=== PATIENT | female | born 1945 | race Caucasian/White ===

== ENCOUNTER 2018-01-06 15:29 | Inpatient (IN) | payer MEDICARE ==
[~2018-01-06] VITALS: Ht 168.9 cm; Wt 107.6 kg
[~2018-01-06 15:29] MED LIST: AMLODIPINE BESYL5 MG PO; ANASTROZOLE1 MG PO; ASPIRIN81 MG PO; ATORVASTATIN CA40 MG PO; COUMADIN2.5 MG PO; DIGOXIN125 MCG PO; FUROSEMIDE20 MG PO; GLIPIZIDE5 MG PO; LEVOTHYROXINE75 MCG PO; LISINOPRIL20 MG PO; METFORMIN HCL500 M2 PO; POTASSIUM CHLO10 MEQ PO; TOPROL XL200 MG PO; VICODIN 5-5001 EACH PO; VITAMIN D350000 UNIT PO
[2018-01-06 17:32] LABS: BASOPHILS # (AUTO) 0.1 (0.0-0.1); BASOPHILS % 0.8 % (0.0-1.0); EOSINOPHILS # (AUTO) 0.2 (0.0-0.4); EOSINOPHILS % 1.6 % (0.0-6.0); HEMATOCRIT 37.2 % (34.2-44.1); HEMOGLOBIN 11.3 g/dL (12.0-16.0); LYMPHOCYTES # (AUTO) 0.8 (1.0-3.2); LYMPHOCYTES % 8.7 % (18.0-39.1); MEAN CORPUSCULAR HEMOGLOBIN 28.2 pg (28-32); MEAN CORPUSCULAR HGB CONC 30.4 g/dL (31-35); MEAN CORPUSCULAR VOLUME 92.8 fL (81-99); MONOCYTES # (AUTO) 1.2 (0.2-0.8); MONOCYTES % 12.7 % (4.4-11.3); NEUTROPHILS % 75.8 % (38.7-80.0); PLATELET COUNT 296 x10e3/uL (140-360); RED BLOOD COUNT 4.01 x10e6/uL (3.6-5.1); RED CELL DISTRIBUTION WIDTH 16.6 % (11.7-14.4)
[2018-01-06 17:44] LABS: PARTIAL THROMBOPLASTIN TIME 78.1 seconds (23.8-35.5)
[2018-01-06 17:48] LABS: INR 8.27; PROTHROMBIN TIME 64.6 seconds (11.9-14.5)
[2018-01-06 17:52] LABS: ALANINE AMINOTRANSFERASE 18 IU/L (0-55); ALBUMIN 2.6 g/dL (3.5-5.0); ALBUMIN/GLOBULIN RATIO 0.5 (0.8-2.0); ALKALINE PHOSPHATASE 122 IU/L (40-150); ANION GAP 14.2 mmol/L (8-16); BLOOD UREA NITROGEN 12 mg/dL (7-26); BUN/CREATININE RATIO 15 (6-25); CALCIUM 9.7 mg/dL (8.4-10.2); CARBON DIOXIDE 32 mmol/L (22-29); CHLORIDE 99 mmol/L (98-107); CREATINE KINASE 12 IU/L (29-168); CREATININE, SERUM 0.82 mg/dL (0.57-1.11); EST GLOMERULAR FILTRATION RATE > 60 ML/MIN (60-); GLUCOSE 108 mg/dL (74-118); POTASSIUM 5.2 mmol/L (3.5-5.1); SODIUM 140 mmol/L (136-145)
[2018-01-06] MEDS ORDERED: ONDANSETRON HCL INJ 2 MG/ML VIAL IV PRN (18:45)
[2018-01-06] MEDS ORDERED: MORPHINE SULFATE 2 MG/ML SYR IV PRN (18:45)
[2018-01-06 20:00] VITALS: BP 164/85
[2018-01-06 20:50] VITALS: BP 132/84
[2018-01-06] MEDS ORDERED: METOPROLOL SUCC25 MG PO (23:06)
[2018-01-06] MEDS ORDERED: DILTIAZEM 24HR120 M1 (23:06)
[2018-01-06] MEDS ORDERED: AMIODARONE PO (23:06)
[2018-01-06] MEDS ORDERED: PEPCID20 MG PO (23:06)
[2018-01-06] MEDS: IPRATROPIUM BROMIDE 0.02% 2.5 ML NEB NEB SCH (23:10)
[2018-01-07] VITALS: BP 145/79
[2018-01-07] MEDS: IPRATROPIUM BROMIDE 0.02% 2.5 ML NEB NEB SCH ×6 (03:25→23:10)
[2018-01-07 04:24] VITALS: BP 120/71
[2018-01-07] MEDS: HYDROCODONE/APAP 5MG-325MG TAB PO PRN ×2 (04:29→21:45)
[2018-01-07 05:13] LABS: BASOPHILS # (AUTO) 0.1 (0.0-0.1); BASOPHILS % 0.7 % (0.0-1.0); EOSINOPHILS # (AUTO) 0.1 (0.0-0.4); EOSINOPHILS % 1.4 % (0.0-6.0); HEMATOCRIT 35.6 % (34.2-44.1); HEMOGLOBIN 10.4 g/dL (12.0-16.0); LYMPHOCYTES # (AUTO) 0.9 (1.0-3.2); LYMPHOCYTES % 10.5 % (18.0-39.1); MEAN CORPUSCULAR HEMOGLOBIN 27.7 pg (28-32); MEAN CORPUSCULAR HGB CONC 29.2 g/dL (31-35); MEAN CORPUSCULAR VOLUME 94.7 fL (81-99); MONOCYTES # (AUTO) 1.1 (0.2-0.8); MONOCYTES % 13.1 % (4.4-11.3); NEUTROPHILS # (AUTO) 6.2 (2.1-6.9); NEUTROPHILS % 73.8 % (38.7-80.0); PLATELET COUNT 307 x10e3/uL (140-360); RED BLOOD COUNT 3.76 x10e6/uL (3.6-5.1); RED CELL DISTRIBUTION WIDTH 16.8 % (11.7-14.4)
[2018-01-07 05:33] LABS: INR 7.05
[2018-01-07 05:35] LABS: ANION GAP 13.9 mmol/L (8-16); BLOOD UREA NITROGEN 12 mg/dL (7-26); BUN/CREATININE RATIO 15 (6-25); CALCIUM 9.5 mg/dL (8.4-10.2); CARBON DIOXIDE 32 mmol/L (22-29); CHLORIDE 100 mmol/L (98-107); CREATININE, SERUM 0.79 mg/dL (0.57-1.11); EST GLOMERULAR FILTRATION RATE > 60 ML/MIN (60-); GLUCOSE 163 mg/dL (74-118); POTASSIUM 4.9 mmol/L (3.5-5.1); SODIUM 141 mmol/L (136-145)
[2018-01-07 05:58] LABS: MAGNESIUM 2.2 MG/DL (1.3-2.1)
[2018-01-07] MEDS: LEVOTHYROXINE SODIUM 75 MCG TAB PO SCH (06:01)
[2018-01-07 06:13] LABS: THYROID STIMULATING HORMONE 0.805 uIU/mL (0.350-4.940)
[2018-01-07 06:19] LABS: DIGOXIN < 0.30 ng/mL (0.8-2.0)
[2018-01-07 06:53] LABS: CREATINE KINASE MB 1.3 ng/mL (0-5.0)
[2018-01-07 07:39] LABS: BAND NEUTROPHILS % (MANUAL) 1 %; LYMPHOCYTES % (MANUAL) 18 % (19-48); MONOCYTES % (MANUAL) 11 % (3.4-9.0); NEUTROPHILS % (MANUAL) 70 % (40-74); NUCLEATED RED BLOOD CELLS 1
[2018-01-07 07:40] LABS: PLATELET ESTIMATE ADEQUATE; PLATELET MORPHOLOGY COMMENT NORMAL; RBC MORPHOLOGY COMMENT NORMAL
[2018-01-07 08:00] VITALS: BP 92/60
[2018-01-07] MEDS ORDERED: METOPROLOL SUCCINATE 25 MG TAB XL PO SCH (09:00)
[2018-01-07] MEDS ORDERED: FUROSEMIDE 40 MG TAB PO SCH (09:00)
[2018-01-07] MEDS ORDERED: AMIODARONE HCL 200 MG TAB PO SCH (09:00)
[2018-01-07] MEDS ORDERED: LISINOPRIL 20 MG TAB PO SCH (09:00)
[2018-01-07] MEDS ORDERED: DILTIAZEM HCL 120 MG CAP CD PO SCH (09:00)
[2018-01-07] MEDS: METFORMIN HCL 500 MG TAB CR PO SCH ×2 (09:30→17:56)
[2018-01-07] MEDS: POTASSIUM CHLORIDE 10 MEQ TABCR PO SCH (09:30)
[2018-01-07] MEDS: FAMOTIDINE 20 MG TAB PO SCH ×2 (09:30→17:56)
[2018-01-07] MEDS: GLIPIZIDE 5 MG TAB PO SCH (09:30)
--- NOTE | 2018-01-07 09:46 | Diagnostic Imaging Report ---
EXAMINATION: CHEST 2 VIEWS INDICATION: \S\PLEURAL EFFUSION \[id number] \S\[id number] \S\Y COMPARISON: CT chest 04/04/2012 and chest radiograph 01/06/2018 FINDINGS: PA and lateral views TUBES and LINES: None. LUNGS: Decreased right lung volume. Bilateral interstitial edema. Right lower lobe consolidation may be due to atelectasis. PLEURA: Moderate right and small left pleural effusion, unchanged. No pneumothorax. HEART AND MEDIASTINUM: Stable mild enlargement of the cardiac silhouette. BONES AND SOFT TISSUES: No acute osseous lesion. Soft tissues are unremarkable. UPPER ABDOMEN: No free air under the diaphragm. IMPRESSION: Unchanged bilateral interstitial edema and moderate right and small left pleural effusions. Bibasilar atelectasis, right greater than left. Signed by: Dr. Zuleyka Bruce M.D. on 01/07/2018 9:43 AM
--- NOTE | 2018-01-07 09:55 | Diagnostic Imaging Report ---
EXAMINATION: CHEST SINGLE (PORTABLE) INDICATION: \S\SOB \[id number] \S\[id number] COMPARISON: Chest radiograph 01/13/2017 FINDINGS: AP view TUBES and LINES: None. LUNGS: Decreased right lung volume. Consolidation in the right lower lobe. Left lung is clear. Mild bilateral interstitial edema. PLEURA: Moderate right and small left pleural effusions. No pneumothorax. HEART AND MEDIASTINUM: Mild enlargement of the cardiac silhouette. BONES AND SOFT TISSUES: No acute osseous lesion. Soft tissues are unremarkable. UPPER ABDOMEN: No free air under the diaphragm. IMPRESSION: Interval development of bilateral pleural effusion with right lower lobe airspace opacity which may be due to atelectasis or developing infection. Bilateral interstitial edema. Signed by: Dr. Zuleyka Bruce M.D. on 01/07/2018 9:51 AM
[2018-01-07 12:00] VITALS: BP 92/60
[2018-01-07 13:09] LABS: CREATINE KINASE MB 1.3 ng/mL (0-5.0)
[2018-01-07] MEDS ORDERED: PHYTONADIONE 10 MG/ML AMP SC ONE (13:15)
[2018-01-07] MEDS ORDERED: DIGOXIN INJ 0.25 MG/ML 2 ML AMP IV ONE (14:00)
[2018-01-07] MEDS ORDERED: AZITHROMYCIN 500MG/NS 250 ML 250 ML IV ONE (14:30)
[2018-01-07] MEDS ORDERED: CEFTRIAXONE SOD 1 GM VIAL IV ONE (14:30)
[2018-01-07] MEDS ORDERED: VANCOMYCIN 1GM/NS 250 ML 250 ML IV ONE (15:30)
[2018-01-07 16:00] VITALS: BP 150/83
[2018-01-07] MEDS: INSULIN LISPRO 100 UNIT/1 ML 3ML VIAL SQ SCH ×2 (16:30→21:00)
[2018-01-07] MEDS ORDERED: SODIUM CHLORIDE 0.9% 250ML 250 ML ONE (17:34)
--- NOTE | 2018-01-07 17:43 | Consultation ---
DATE OF CONSULTATION: PULMONARY CONSULTATION A patient of Dr. Noe. A charming but unfortunate 72-year-old woman with history of recent pneumonia, fever and chills. History of old stroke, history of chronic atrial fibrillation, hypertension, hypothyroidism, diabetes. She is chronically anticoagulated. 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 She has had other surgeries but cannot recall them. ALLERGIES: ALLERGIC TO CLEOCIN AND ADHESIVE TAPE. She has a history of a renal mass. Her medications include amiodarone, metformin, glipizide, metoprolol, Lipitor, aspirin, Levoxyl, lisinopril, Vicodin and Cardizem. She has had a hysterectomy. Worked as a manager of business operations. Nonsmoker, no alcohol. Born in [place], [place]. FAMILY HISTORY: Noncontributory. PHYSICAL EXAMINATION GENERAL: A well-developed white female in no acute distress. Appears stated age. History of multiple old lacunar strokes. VITAL SIGNS: Temperature 100.7, pulse 103, blood pressure 92/60. She relates that she has had thoracentesis earlier this month at [facility]. HEAD: Normocephalic, atraumatic. NECK: Trachea midline. CHEST: Right mastectomy scar. LUNGS: Diminished breath sounds right base. HEART: Irregular rhythm. ABDOMEN: Nontender. EXTREMITIES: Stasis dermatitis lower extremities. IMPRESSION: One of 1. Heart failure. 2. Breast cancer. 3. Fever. 4. Atelectasis related to effusion. PLAN: Thoracentesis once the INR has been corrected. It is supratherapeutic at this time. Check sputum studies, CT chest. Consider renal evaluation. Recurrent pleural effusion suspicious for cancer. Thank you for this kind referral. Job#: [id number] EV
[2018-01-07] MEDS: METOPROLOL TARTRATE 25 MG TAB PO SCH (18:11)
[2018-01-07] MEDS ORDERED: METOLAZONE 5 MG TAB PO ONE (18:30)
[2018-01-07] MEDS ORDERED: FUROSEMIDE INJ 10 MG/ML 4 ML VIAL IV ONE (18:30)
[2018-01-07 20:24] VITALS: BP 154/83
[2018-01-07] MEDS: ATORVASTATIN 10 MG TAB PO SCH (21:45)
--- NOTE | 2018-01-07 22:54 | Consultation ---
DATE OF CONSULTATION: January 07, 2018 CARDIOLOGY CONSULTATION REASON FOR CONSULTATION: Atrial fibrillation and dyspnea. HISTORY OF PRESENT ILLNESS: Ms. Wooten is a 72-year-old lady with past medical history of hypertension, type-2 diabetes with complications of hypercholesterolemia, chronic atrial fibrillation for the past 10 years with prior history of 2 embolic strokes in the past with residual slight right-sided weakness and right facial droop, and has some slight residual expressive aphasia, history of right breast mastectomy 5 years ago for breast cancer, status post XRT and chemotherapy and is now on chronic anastrozole therapy as a hormonal suppressant, history of hypothyroidism, history of chronic bilateral lower extremity lymphedema and prior history of DVT of the lower extremities on chronic anticoagulant therapy amongst other things. Patient's most recent issue has been progressively worsening exertional dyspnea, cough, fatigue, unexplained weight gain and went to [facility], where she was diagnosed with a right-sided pleural effusion and underwent therapeutic thoracentesis removing 1.1 L, which improved her breathing. Since that time, she has had progressive decline in functional capacity with exertional dyspnea, fatigue, and development of 2- to 3-pillow orthopnea and worsening lower extremity edema. She denies knowing that she has ever been told that she has congestive heart failure in the past and as far as coronary evaluation, denies any ischemic evaluation or recent history. She has no known history of any coronary artery disease. She presents to this institution also with low-grade fevers, chills, and a nonproductive cough. Upon arrival here in the emergency room, she had a BNP noted to be elevated at 376 and a troponin that was strongly negative times 3 and has been ruled out for acute myocardial infarction. Her TSH is noted to be normal at 0.805. Cardiology is consulted for further aid and management. Of note, she was noted to be supratherapeutic on her INR at 8.27 on admission and did receive some vitamin K as a reversal. PAST MEDICAL HISTORY 1. Hypertension, essential. 2. Type-2 diabetes with complications. 3. Hypercholesterolemia. 4. Chronic atrial fibrillation diagnosed in 2007 with prior history of stroke and presumably embolic times 2. 5. Breast cancer, status post right mastectomy, status post chemo and XRT on anastrozole hormonal therapy. 6. Hypothyroidism. 7. Right pleural effusion, status post thoracentesis 1 month ago at [facility]. 8. Chronic lymphedema. 9. History of lower extremity DVT, diagnosed 2 months ago. 10. History of stroke with slight right-sided weakness and facial droop, as well as some expressive aphasia. 11. Left renal mass, under observation. PAST SURGICAL HISTORY 1. History of right mastectomy 5 years ago. 2. History of abdominal hernia surgery, not resolved. 3. History of lumbar spine surgery times 2. FAMILY HISTORY: Mother in her 60s of unknown cause. Father in his 50s and unknown history. Denies any family history of coronary artery disease or heart problems. SOCIAL HISTORY: She is a lifelong nonsmoker. Denies any alcohol or illicit drug use. ALLERGIES: CLINDAMYCIN. HOME MEDICATIONS 1. Aspirin 81 mg daily. 2. Atorvastatin 10 mg daily. 3. Cardizem 120 mg daily. 4. Pepcid 20 mg b.i.d. 5. Lasix 40 mg daily. 6. Glipizide 5 mg daily. 7. Vicodin 5 per 500 mg q.6 h p.r.n. 8. Synthroid 75 mcg daily. 9. Lisinopril 20 mg b.i.d. 10. Metformin 500 mg b.i.d. 11. Toprol XL 75 mg b.i.d. 12. Potassium chloride 10 mEq daily. REVIEW OF SYSTEMS GENERAL: Positive for subjective fevers, chills. Denies any weight loss. Positive for weight gain. HEENT: No headaches, visual complaints. Positive for sore throat and some slight stuffiness. RESPIRATORY: Positive for nonproductive cough, exertional dyspnea at rest, now at rest, and development of 3-pillow orthopnea. CARDIOVASCULAR: Denies any chest pain, discomfort. Increased lower extremity edema and positive orthopnea and early satiety that is progressive over the past 3 weeks. GI: Positive for GERD. No bright red blood per rectum, melena, hematemesis. HEMATOLOGY: Positive for easy bruising. No bleeding. : Denies any dysuria, pyuria. MUSCULOSKELETAL: Positive for lower back pain, leg pain, leg swelling and skin texture changes and blister over left anterior atkinson. ENDOCRINE: Positive for diabetes and hypothyroidism. NEUROLOGIC: Positive for history of stroke in the past with residual expressive aphasia, some slight right-sided body weakness. REMAINDER OF REVIEW OF SYSTEMS: Negative otherwise mentioned. PHYSICAL EXAM VITAL SIGNS: Height of 66.5 inches, weight of 244 pounds, BMI is 38.8, temperature of 98.0, T-max is 100.7, pulse of 123, respiratory rate 18, blood pressure is 92/60, O2 sat 94% on 3 L nasal cannula. GENERAL: This is a chronically ill appearing lady, who is currently in mild respiratory difficulty. HEENT: Normocephalic, atraumatic. Pupils are equally round and reactive to light. Extraocular movements are intact. Oropharynx is clear. NECK: There is JVD up to the angle of mandible. CARDIOVASCULAR: Irregularly irregular rhythm, tachycardic. Normal S1 and S2. Soft 1/6 systolic murmur left lower sternal border. LUNGS: Absent breath sounds 1/3 of the lung carlisle on the right, 1/4 of the lung carlisle on the left, some crackles, and poor air entry. ABDOMEN: Soft, protuberant with a ventral abdominal wall hernia with abdominal pitting edema. BACK: No costovertebral angle tenderness. EXTREMITIES: With 4+ edema. There is chronic venous stasis changes below the knees bilaterally. There is an anterior left atkinson ulcer that is nonstageable that was present on admission. NEUROLOGIC: She has got some slight right upper extremity body weakness 4-/5. There is a right facial droop and has some slight expressive aphasia. REMAINDER OF PHYSICAL EXAM: Negative otherwise mentioned. LABS: White count of 8.4, hemoglobin 10.4, hematocrit 35.6, platelets of 307,000. Sodium 141, potassium 4.9, chloride 100, bicarb 32, BUN 12, creatinine 0.79, glucose of 163, AST is 13, ALT 18, alk phos 122, total protein 7.4, albumin of 2.6. INR most recently is 7.05, dig level is less than 0.3. UA is not done. Chest x-ray reveals bilateral interstitial edema and right lung base opacity concerning for right effusion moderate on the right, small on the left. EKG: Atrial fibrillation, delayed R/S transition, left anterior fascicular block, and nonspecific ST/T-wave. Troponin is negative times 3. DIAGNOSES 1. [id number] decompensated diastolic heart failure. 2. Hypoxemic respiratory distress. 3. Questionable superimposed pneumonia. 4. Recurrent bilateral pleural effusions. 5. Atrial fibrillation with rapid ventricular response, chronic. 6. Questionable pneumonia, sepsis with low-grade fevers. 7. History of breast cancer, on chronic hormonal therapy. 8. History of deep venous thrombosis. 9. Supratherapeutic international normalized ratio with international normalized ratio of 7, status post receiving of vitamin K. 10. Prior history of stroke. 11. Hypertension, essential. 12. Type-2 diabetes with complications. 13. Venous stasis changes and anterior left atkinson venous ulcer. PLAN/RECOMMENDATIONS 1. From cardiovascular standpoint, due to a lack of blood pressure, we will stick with digoxin, as well as metoprolol for rate control therapy. Will not give amiodarone as rhythm control strategy will not be successful in a lady, who has been in chronic atrial fibrillation for 10 years. 2. Will hold anticoagulant therapy for now due to severely supratherapeutic INR. 3. On empiric antibiotic therapy for pneumonia and low-grade fevers. 4. Will give metolazone, Lasix combination for aggressive diuresis. 5. Will check echocardiogram to evaluate her left ventricular function. 6. Her hyperalbuminemia and protein-calorie malnutrition is also going to be a challenging issue, which will promote volume retention. 7. Telemetry monitoring. 8. Will continue monitor this patient with you. Thank you for this referral. Job#: [id number] SHANTELLE
[2018-01-08] VITALS (17 sets, daily range): BP systolic 88–160; BP diastolic 45–101
[2018-01-08] MEDS: IPRATROPIUM BROMIDE 0.02% 2.5 ML NEB NEB SCH ×6 (03:20→23:30)
[2018-01-08 05:11] LABS: BASOPHILS # (AUTO) 0.1 (0.0-0.1); BASOPHILS % 0.6 % (0.0-1.0); EOSINOPHILS # (AUTO) 0.2 (0.0-0.4); EOSINOPHILS % 1.8 % (0.0-6.0); HEMATOCRIT 35.8 % (34.2-44.1); HEMOGLOBIN 10.9 g/dL (12.0-16.0); LYMPHOCYTES # (AUTO) 1.2 (1.0-3.2); LYMPHOCYTES % 10.5 % (18.0-39.1); MEAN CORPUSCULAR HEMOGLOBIN 28.2 pg (28-32); MEAN CORPUSCULAR HGB CONC 30.4 g/dL (31-35); MEAN CORPUSCULAR VOLUME 92.7 fL (81-99); MONOCYTES # (AUTO) 1.2 (0.2-0.8); MONOCYTES % 10.8 % (4.4-11.3); NEUTROPHILS # (AUTO) 8.3 (2.1-6.9); NEUTROPHILS % 75.8 % (38.7-80.0); PLATELET COUNT 300 x10e3/uL (140-360); RED BLOOD COUNT 3.86 x10e6/uL (3.6-5.1); RED CELL DISTRIBUTION WIDTH 16.5 % (11.7-14.4)
[2018-01-08 05:27] LABS: INR 4.02; PROTHROMBIN TIME 36.8 seconds (11.9-14.5)
[2018-01-08] MEDS: LEVOTHYROXINE SODIUM 75 MCG TAB PO SCH (05:40)
[2018-01-08] MEDS: METOPROLOL TARTRATE 25 MG TAB PO SCH ×4 (05:40→17:14)
[2018-01-08 06:00] LABS: ALANINE AMINOTRANSFERASE 17 IU/L (0-55); ALBUMIN 2.2 g/dL (3.5-5.0); ALBUMIN/GLOBULIN RATIO 0.4 (0.8-2.0); ALKALINE PHOSPHATASE 123 IU/L (40-150); ANION GAP 14.7 mmol/L (8-16); BLOOD UREA NITROGEN 10 mg/dL (7-26); BUN/CREATININE RATIO 13 (6-25); CALCIUM 9.1 mg/dL (8.4-10.2); CARBON DIOXIDE 34 mmol/L (22-29); CHLORIDE 88 mmol/L (98-107); CREATININE, SERUM 0.79 mg/dL (0.57-1.11); EST GLOMERULAR FILTRATION RATE > 60 ML/MIN (60-); GLUCOSE 137 mg/dL (74-118); POTASSIUM 3.7 mmol/L (3.5-5.1); SODIUM 133 mmol/L (136-145)
[2018-01-08] MEDS: INSULIN LISPRO 100 UNIT/1 ML 3ML VIAL SQ SCH ×4 (07:30→21:00)
[2018-01-08] MEDS: DIGOXIN 0.125 MG TAB PO SCH (08:12)
[2018-01-08] MEDS: POTASSIUM CHLORIDE 10 MEQ TABCR PO SCH (08:12)
[2018-01-08] MEDS: METFORMIN HCL 500 MG TAB CR PO SCH ×2 (08:12→17:13)
[2018-01-08] MEDS: FAMOTIDINE 20 MG TAB PO SCH ×2 (08:12→17:13)
[2018-01-08] MEDS: GLIPIZIDE 5 MG TAB PO SCH (08:12)
[2018-01-08] MEDS: FUROSEMIDE INJ 10 MG/ML 4 ML VIAL IV SCH ×2 (09:19→20:30)
[2018-01-08] MEDS ORDERED: METOLAZONE 5 MG TAB PO ONE (09:30)
[2018-01-08] MEDS ORDERED: PHYTONADIONE 10 MG/ML AMP SC ONE (10:40)
[2018-01-08] MEDS: CEFTRIAXONE SOD 1 GM VIAL IV SCH (11:55)
[2018-01-08] MEDS: DOXYCYCLINE HYCLATE TABLET 100 MG TAB PO SCH ×2 (11:59→20:30)
[2018-01-08] MEDS: POTASSIUM CHLORIDE 20 MEQ TAB CR PO SCH ×2 (11:59→17:14)
--- NOTE | 2018-01-08 12:45 | Diagnostic Imaging Report ---
EXAMINATION: CHEST SINGLE (PORTABLE) INDICATION: \S\SOB \S\[id number] \S\[id number] COMPARISON: Chest radiograph at 01/07/2018 FINDINGS: AP view TUBES and LINES: None. LUNGS: Decreased right lung volume. Bilateral interstitial edema, unchanged. Right lower lobe consolidation may be due to atelectasis, obscuring by the increasing pleural effusion. PLEURA: Large right pleural effusion, increased. Stable small left pleural effusion. No pneumothorax. HEART AND MEDIASTINUM: Stable mild enlargement of the cardiac silhouette. BONES AND SOFT TISSUES: No acute osseous lesion. Soft tissues are unremarkable. UPPER ABDOMEN: No free air under the diaphragm. IMPRESSION: Large right pleural effusion, increased since prior exam. Signed by: Dr. Zuleyka Bruce M.D. on 01/08/2018 12:42 PM
--- NOTE | 2018-01-08 13:26 | Diagnostic Imaging Report ---
EXAM: CT Chest WITHOUT contrast 01/08/2018 5:00 AM INDICATION: \S\effusion \S\[id number] \S\[id number] COMPARISON: Chest radiograph 01/08/2018 TECHNIQUE: Chest was scanned utilizing a multidetector helical scanner from the lung apex through the level of the adrenal glands without administration of IV contrast. Absence of intravenous contrast decreases sensitivity for detection of lymphadenopathy and vascular pathology. Coronal and sagittal reformations were obtained. Routine protocol was performed. IV CONTRAST: None COMPLICATIONS: None RADIATION DOSE: Total DLP: 745.3 mGy*cm Estimated effective dose: (DLP x 0.015 x size factor) mSv CTDIvol has been reviewed. It is below the limits set by the Radiation Protocol Committee (RPC). FINDINGS: LINES/ TUBES: None. LUNGS AND AIRWAYS: Small consolidations in the right and left lower lobe with air bronchogram likely related to passive atelectasis from adjacent pleural effusion. No centrilobular nodules or suspicious pulmonary masses. Airways are normal. PLEURA: Large right and small left low-attenuation pleural effusions. No pneumothorax. HEART AND MEDIASTINUM: The thyroid gland is normal. Few subcentimeter mediastinal lymph nodes, likely reactive. Cardiomegaly. Trace pericardial effusion. Extensive coronary artery calcifications. The thoracic aorta is normal in caliber and associated with mild scattered atherosclerotic calcifications. Main pulmonary artery is enlarged, measuring 3.6 cm in diameter, and consistent with pulmonary hypertension. UPPER ABDOMEN: Unremarkable. BONES: Multilevel degenerative changes of the thoracic spine. Kyphoplasty at the L1-L2 vertebral bodies. SOFT TISSUES: Unremarkable. IMPRESSION: Bilateral low-attenuation pleural effusions, large on the right and small on the left, with adjacent atelectasis are suggestive of volume overload rather than infection or malignancy. Continue to follow-up with chest radiograph until resolution. Diffuse coronary artery calcifications. Signed by: Dr. Zuleyka Bruce M.D. on 01/08/2018 1:23 PM
--- NOTE | 2018-01-08 13:55 | Diagnostic Imaging Report ---
EXAM: Renal Ultrasound INDICATION: \S\? mass COMPARISON: CT chest 01/08/2018 TECHNIQUE: Transverse and longitudinal images of the kidneys and bladder were obtained. FINDINGS: Right Kidney: Length: 11.0 cm Appearance: Normal echogenicity. Collecting system: No hydronephrosis Stones: None Cyst/Mass: None Left Kidney: Length: 10.8 cm Appearance: Normal echogenicity. Collecting system: No hydronephrosis Stones: None Cyst/Mass: 3.4 x 3.9 x 3.8 cm hypoechoic mass within the interpolar region of the left kidney. Bladder: Normal IMPRESSION: Indeterminate 3.9 cm left renal cystic mass. Recommend ambulatory follow-up with MRI or CT renal mass protocol. Signed by: Dr. Zuleyka Bruce M.D. on 01/08/2018 1:52 PM
[2018-01-08 15:53] LABS: ABG PH 7.42 (7.31-7.41)
[2018-01-08 15:54] LABS: ABG PCO2 85 mmHg (41-51); ABG PO2 97 mmHg (80-105)
[2018-01-08 15:55] LABS: ABG BASE EXCESS > 30.0 mmol/L (-2 - 3); ABG HCO3 55 mmol/L (23-28)
[2018-01-08] MEDS ORDERED: MORPHINE SULFATE INJ 4 MG/ML INJ IV PRN (16:30)
[2018-01-08] MEDS ORDERED: ACETAZOLAMIDE 250 MG TAB PO ONE (16:30)
[2018-01-08] MEDS: ATORVASTATIN 10 MG TAB PO SCH (20:30)
[2018-01-09] VITALS (8 sets, daily range): BP systolic 91–108; BP diastolic 58–85
[2018-01-09] MEDS: IPRATROPIUM BROMIDE 0.02% 2.5 ML NEB NEB SCH ×6 (03:40→23:20)
[2018-01-09 04:59] LABS: BASOPHILS # (AUTO) 0.1 (0.0-0.1); BASOPHILS % 0.6 % (0.0-1.0); EOSINOPHILS # (AUTO) 0.2 (0.0-0.4); EOSINOPHILS % 2.8 % (0.0-6.0); HEMATOCRIT 33.4 % (34.2-44.1); HEMOGLOBIN 10.3 g/dL (12.0-16.0); LYMPHOCYTES # (AUTO) 1.4 (1.0-3.2); LYMPHOCYTES % 17.4 % (18.0-39.1); MEAN CORPUSCULAR HEMOGLOBIN 27.8 pg (28-32); MEAN CORPUSCULAR HGB CONC 30.8 g/dL (31-35); MEAN CORPUSCULAR VOLUME 90.3 fL (81-99); MONOCYTES # (AUTO) 1.2 (0.2-0.8); NEUTROPHILS # (AUTO) 5.4 (2.1-6.9); NEUTROPHILS % 64.7 % (38.7-80.0); PLATELET COUNT 296 x10e3/uL (140-360); RED CELL DISTRIBUTION WIDTH 16.2 % (11.7-14.4)
[2018-01-09 05:14] LABS: INR 1.83; PROTHROMBIN TIME 19.9 seconds (11.9-14.5)
[2018-01-09 05:29] LABS: ALBUMIN 2.4 g/dL (3.5-5.0); ALBUMIN/GLOBULIN RATIO 0.5 (0.8-2.0); ANION GAP 14.5 mmol/L (8-16); CALCIUM 9.2 mg/dL (8.4-10.2); CREATININE, SERUM 1.06 mg/dL (0.57-1.11); POTASSIUM 3.5 mmol/L (3.5-5.1)
[2018-01-09] MEDS: METOPROLOL TARTRATE 25 MG TAB PO SCH ×4 (05:46→17:34)
[2018-01-09] MEDS: LEVOTHYROXINE SODIUM 75 MCG TAB PO SCH (06:00)
[2018-01-09] MEDS: INSULIN LISPRO 100 UNIT/1 ML 3ML VIAL SQ SCH ×4 (07:30→22:00)
[2018-01-09] MEDS: FAMOTIDINE 20 MG TAB PO SCH ×2 (10:15→17:39)
[2018-01-09] MEDS: DIGOXIN 0.125 MG TAB PO SCH (10:15)
[2018-01-09] MEDS: DOXYCYCLINE HYCLATE TABLET 100 MG TAB PO SCH ×2 (10:15→22:00)
[2018-01-09] MEDS: CEFTRIAXONE SOD 1 GM VIAL IV SCH (10:15)
[2018-01-09] MEDS: POTASSIUM CHLORIDE 10 MEQ TABCR PO SCH (10:15)
--- NOTE | 2018-01-09 10:19 | Diagnostic Imaging Report ---
PROCEDURE: CHEST XRAY POST PROCEDURE COMPARISON: Chest radiograph 01/08/18. INDICATIONS: POST PROCEDURE CXR FINDINGS: LINES AND TUBES: None. LUNGS: Improving opacity in the right mid and lower lung zones. Mild interstitial opacities are present. PLEURA: Interval decrease in size of a large right pleural effusion post thoracentesis, now small to moderate. HEART \T\ MEDIASTINUM: The cardiomediastinal silhouette is unchanged. BONES \T\ SOFT TISSUES: No acute findings. CONCLUSION: Status post right thoracentesis with decreased right pleural effusion, now small to moderate. Decreasing opacity in the right mid and lower lung, consistent with improving atelectasis. No evidence of pneumothorax. Dictated by: SIXTO BARKER M.D. on 01/09/2018 at 10:26 Electronically approved by: SITXO BARKER M.D. on 01/09/2018 at 10:26
--- NOTE | 2018-01-09 10:21 | Diagnostic Imaging Report ---
PROCEDURE: ULTRASOUND GUIDED RIGHT DIAGNOSTIC AND THERAPEUTIC THORACENTESIS INDICATIONS: Right Effusion COMPARISON: Chest radiograph 01/08/18. TECHNIQUE: The patient was informed of the nature of the proposed procedure. The purposes, alternatives, risks, and benefits were explained and discussed. All questions were answered and written consent was obtained. Medications: 1% Xylocaine DESCRIPTION/FINDINGS: Informed consent was obtained from the patient. Sterile technique was used. An ultrasound-guided right sided thoracentesis was performed. With the use of ultrasound guidance, a right pleural fluid collection was identified. After infiltrating the skin with 1% xylocaine, a 5 Fr catheter was advanced into the right pleural space and 850 cc of serosanguinous fluid was removed. The catheter was removed without immediate complication. A chest radiograph was ordered. Samples were sent for analysis. IMPRESSION: ULTRASOUND GUIDED RIGHT SIDED DIAGNOSTIC AND THERAPEUTIC THORACENTESIS. Dictated by: SIXTO BARKER M.D. on 01/09/2018 at 10:28 Electronically approved by: SIXTO BARKER M.D. on 01/09/2018 at 10:28
[2018-01-09] MEDS: GLIPIZIDE 5 MG TAB PO SCH (10:27)
[2018-01-09] MEDS: METFORMIN HCL 500 MG TAB CR PO SCH ×2 (10:27→17:39)
[2018-01-09 10:36] LABS: BODY FLUID APPEARANCE SL.CLOUDY; BODY FLUID COLOR YELLOW
[2018-01-09 10:37] LABS: RBC,BODY FLUID 7755 cells/uL; WBC,BODY FLUID 1540 cells/uL
[2018-01-09 10:38] LABS: BODY FLUID TYPE PLEURAL
[2018-01-09 10:58] LABS: LYMPHOCYTES,BODY FLUID 21 %; MONO/MACROPHG,BODY FLUID 7 %; OTHER CELLS,BODY FLUID 15 %
[2018-01-09 10:59] LABS: NEUTROPHILS,BODY FLUID 57 %
[2018-01-09] MEDS ORDERED: POTASSIUM CHLORIDE 20 MEQ TAB CR PO STA (11:49)
[2018-01-09] MEDS ORDERED: FUROSEMIDE INJ 10 MG/ML 4 ML VIAL IV SCH (12:15)
[2018-01-09] MEDS: POTASSIUM CHLORIDE 20 MEQ TAB CR PO SCH ×2 (12:15→17:39)
[2018-01-09] MEDS ORDERED: METOLAZONE 5 MG TAB PO NR (12:30)
[2018-01-09] MEDS ORDERED: ACETAZOLAMIDE 250 MG TAB PO SCH ×2 (14:30→14:45)
[2018-01-09] MEDS: FUROSEMIDE INJ 10 MG/ML 4 ML VIAL IV SCH ×2 (15:01→21:00)
[2018-01-09] MEDS ORDERED: WARFARIN SOD 2 MG TAB PO SCH (17:00)
[2018-01-09] MEDS ORDERED: WARFARIN SOD 5 MG TAB PO SCH ×2 (17:00)
[2018-01-09] MEDS: ATORVASTATIN 10 MG TAB PO SCH (22:00)
[2018-01-09] MEDS: ACETAMINOPHEN 325 MG TAB PO PRN (23:16)
[2018-01-10] VITALS (9 sets, daily range): BP systolic 83–120; BP diastolic 61–75
[2018-01-10] MEDS ORDERED: FUROSEMIDE INJ 10 MG/ML 4 ML VIAL IV SCH (03:00)
[2018-01-10] MEDS: IPRATROPIUM BROMIDE 0.02% 2.5 ML NEB NEB SCH ×6 (03:20→23:00)
[2018-01-10 05:08] LABS: BASOPHILS # (AUTO) 0.1 (0.0-0.1); BASOPHILS % 0.7 % (0.0-1.0); EOSINOPHILS # (AUTO) 0.2 (0.0-0.4); EOSINOPHILS % 3.5 % (0.0-6.0); HEMATOCRIT 35.3 % (34.2-44.1); HEMOGLOBIN 10.8 g/dL (12.0-16.0); LYMPHOCYTES # (AUTO) 1.6 (1.0-3.2); LYMPHOCYTES % 23.8 % (18.0-39.1); MEAN CORPUSCULAR HEMOGLOBIN 27.3 pg (28-32); MEAN CORPUSCULAR HGB CONC 30.6 g/dL (31-35); MEAN CORPUSCULAR VOLUME 89.4 fL (81-99); MONOCYTES # (AUTO) 0.9 (0.2-0.8); MONOCYTES % 13.3 % (4.4-11.3); NEUTROPHILS % 58.1 % (38.7-80.0); PLATELET COUNT 302 x10e3/uL (140-360); RED BLOOD COUNT 3.95 x10e6/uL (3.6-5.1); RED CELL DISTRIBUTION WIDTH 15.9 % (11.7-14.4)
[2018-01-10 05:14] LABS: INR 1.33; PROTHROMBIN TIME 15.5 seconds (11.9-14.5)
[2018-01-10 05:24] LABS: ALBUMIN 2.5 g/dL (3.5-5.0); ALBUMIN/GLOBULIN RATIO 0.6 (0.8-2.0); ANION GAP 15.1 mmol/L (8-16); CALCIUM 9.7 mg/dL (8.4-10.2); CREATININE, SERUM 1.29 mg/dL (0.57-1.11); POTASSIUM 4.1 mmol/L (3.5-5.1)
[2018-01-10] MEDS: METOPROLOL TARTRATE 25 MG TAB PO SCH ×4 (06:00→18:04)
[2018-01-10] MEDS: LEVOTHYROXINE SODIUM 75 MCG TAB PO SCH (06:23)
[2018-01-10] MEDS: INSULIN LISPRO 100 UNIT/1 ML 3ML VIAL SQ SCH ×4 (07:30→20:47)
[2018-01-10] MEDS: METFORMIN HCL 500 MG TAB CR PO SCH ×2 (09:24→17:49)
[2018-01-10] MEDS: ENOXAPARIN SODIUM INJ 100 MG/ML SYR SC SCH ×2 (09:24→20:46)
[2018-01-10] MEDS: FAMOTIDINE 20 MG TAB PO SCH ×2 (09:24→17:50)
[2018-01-10] MEDS: DOXYCYCLINE HYCLATE TABLET 100 MG TAB PO SCH ×2 (09:25→20:46)
[2018-01-10] MEDS: GLIPIZIDE 5 MG TAB PO SCH (09:25)
[2018-01-10] MEDS: POTASSIUM CHLORIDE 10 MEQ TABCR PO SCH (09:25)
[2018-01-10] MEDS: DIGOXIN 0.125 MG TAB PO SCH (09:26)
[2018-01-10] MEDS: CEFTRIAXONE SOD 1 GM VIAL IV SCH ×2 (10:30→17:50)
[2018-01-10] MEDS ORDERED: WARFARIN SOD 2 MG TAB PO SCH (17:00)
[2018-01-10] MEDS: WARFARIN SOD 5 MG TAB PO SCH (17:51)
[2018-01-10] MEDS: ATORVASTATIN 10 MG TAB PO SCH (20:46)
[2018-01-11] VITALS (9 sets, daily range): BP systolic 95–118; BP diastolic 70–91
[2018-01-11] MEDS: IPRATROPIUM BROMIDE 0.02% 2.5 ML NEB NEB SCH ×6 (03:30→23:30)
[2018-01-11 05:15] LABS: BASOPHILS # (AUTO) 0.1 (0.0-0.1); BASOPHILS % 1.1 % (0.0-1.0); EOSINOPHILS # (AUTO) 0.3 (0.0-0.4); EOSINOPHILS % 4.7 % (0.0-6.0); HEMATOCRIT 35.1 % (34.2-44.1); HEMOGLOBIN 10.9 g/dL (12.0-16.0); LYMPHOCYTES # (AUTO) 1.3 (1.0-3.2); LYMPHOCYTES % 21.2 % (18.0-39.1); MEAN CORPUSCULAR HEMOGLOBIN 27.5 pg (28-32); MEAN CORPUSCULAR HGB CONC 31.1 g/dL (31-35); MEAN CORPUSCULAR VOLUME 88.4 fL (81-99); MONOCYTES # (AUTO) 0.9 (0.2-0.8); MONOCYTES % 14.4 % (4.4-11.3); NEUTROPHILS # (AUTO) 3.5 (2.1-6.9); NEUTROPHILS % 57.8 % (38.7-80.0); PLATELET COUNT 303 x10e3/uL (140-360); RED BLOOD COUNT 3.97 x10e6/uL (3.6-5.1); RED CELL DISTRIBUTION WIDTH 15.9 % (11.7-14.4)
[2018-01-11 05:34] LABS: INR 1.35; PROTHROMBIN TIME 15.7 seconds (11.9-14.5)
[2018-01-11 05:54] LABS: ALBUMIN 2.3 g/dL (3.5-5.0); ALBUMIN/GLOBULIN RATIO 0.5 (0.8-2.0); ANION GAP 13.3 mmol/L (8-16); CALCIUM 9.7 mg/dL (8.4-10.2); CREATININE, SERUM 0.94 mg/dL (0.57-1.11); POTASSIUM 3.3 mmol/L (3.5-5.1)
[2018-01-11] MEDS: METOPROLOL TARTRATE 25 MG TAB PO SCH ×5 (06:00→23:31)
--- NOTE | 2018-01-11 06:36 | Diagnostic Imaging Report ---
CHEST SINGLE (PORTABLE), 01/11/2018 5:29 AM Technique: CHEST SINGLE (PORTABLE) Comparison: CT and x-ray 01/08/2018 Clinical history: Pleural effusion Findings: See Impression Impression: 1. Large partially loculated right pleural effusion appears decreased. Small left pleural effusion. No pneumothorax. 2. Stable mildly enlarged cardiac silhouette. Signed by: Dr Sonya Aguilar MD on 01/11/2018 6:33 AM
[2018-01-11] MEDS ORDERED: FUROSEMIDE INJ 10 MG/ML 4 ML VIAL IV SCH (07:30)
[2018-01-11] MEDS: INSULIN LISPRO 100 UNIT/1 ML 3ML VIAL SQ SCH ×4 (07:30→21:00)
[2018-01-11] MEDS: LEVOTHYROXINE SODIUM 75 MCG TAB PO SCH (09:45)
[2018-01-11] MEDS: DIGOXIN 0.125 MG TAB PO SCH (09:45)
[2018-01-11] MEDS: DOXYCYCLINE HYCLATE TABLET 100 MG TAB PO SCH ×2 (09:46→21:07)
[2018-01-11] MEDS: FAMOTIDINE 20 MG TAB PO SCH ×2 (09:46→17:45)
[2018-01-11] MEDS: POTASSIUM CHLORIDE 10 MEQ TABCR PO SCH (09:46)
[2018-01-11] MEDS: ENOXAPARIN SODIUM INJ 100 MG/ML SYR SC SCH ×2 (09:47→21:07)
[2018-01-11] MEDS: METFORMIN HCL 500 MG TAB CR PO SCH ×2 (09:58→17:44)
[2018-01-11] MEDS: GLIPIZIDE 5 MG TAB PO SCH (09:58)
[2018-01-11] MEDS: BALSAM PERU/CASTOR OIL 60 GM OINT...G. TP SCH ×2 (10:19→17:32)
[2018-01-11] MEDS: COLLAGENASE OINTMENT 30 GM TUBE TP SCH (10:19)
[2018-01-11] MEDS ORDERED: POTASSIUM CHLORIDE 20 MEQ TAB CR PO NR (11:15)
[2018-01-11] MEDS: WARFARIN SOD 5 MG TAB PO SCH (17:43)
[2018-01-11] MEDS: CEFTRIAXONE SOD 1 GM VIAL IV SCH (17:43)
[2018-01-11] MEDS: ATORVASTATIN 10 MG TAB PO SCH (21:07)
[2018-01-12] VITALS (8 sets, daily range): BP systolic 113–126; BP diastolic 63–85
[2018-01-12] MEDS: IPRATROPIUM BROMIDE 0.02% 2.5 ML NEB NEB SCH ×6 (03:30→23:45)
[2018-01-12 04:58] LABS: INR 1.27; PROTHROMBIN TIME 14.9 seconds (11.9-14.5)
[2018-01-12 05:04] LABS: ANION GAP 15.7 mmol/L (8-16); BLOOD UREA NITROGEN 19 mg/dL (7-26); BUN/CREATININE RATIO 23 (6-25); CALCIUM 9.9 mg/dL (8.4-10.2); CARBON DIOXIDE 34 mmol/L (22-29); CHLORIDE 92 mmol/L (98-107); CREATININE, SERUM 0.81 mg/dL (0.57-1.11); EST GLOMERULAR FILTRATION RATE > 60 ML/MIN (60-); GLUCOSE 114 mg/dL (74-118); MAGNESIUM 1.9 MG/DL (1.3-2.1); POTASSIUM 3.7 mmol/L (3.5-5.1); SODIUM 138 mmol/L (136-145)
[2018-01-12] MEDS: METOPROLOL TARTRATE 25 MG TAB PO SCH ×4 (05:09→23:28)
[2018-01-12] MEDS: LEVOTHYROXINE SODIUM 75 MCG TAB PO SCH (05:09)
[2018-01-12] MEDS: INSULIN LISPRO 100 UNIT/1 ML 3ML VIAL SQ SCH ×4 (07:30→20:24)
[2018-01-12] MEDS: GLIPIZIDE 5 MG TAB PO SCH (07:56)
[2018-01-12] MEDS: METFORMIN HCL 500 MG TAB CR PO SCH ×2 (07:56→17:00)
[2018-01-12] MEDS: ENOXAPARIN SODIUM INJ 100 MG/ML SYR SC SCH ×2 (09:00→20:23)
--- NOTE | 2018-01-12 09:38 | Diagnostic Imaging Report ---
PROCEDURE: X-RAY CHEST, TWO VIEWS COMPARISON: 01/11/2018. INDICATIONS: EFFUSION FINDINGS: Lung volumes are low. Moderate right and small left pleural effusions. Passive right lower lobe atelectasis. Stable cardiomediastinal contour without overt pulmonary edema. No acute osseous abnormalities. CONCLUSION: Low lung volumes with moderate right and small left pleural effusions. Dictated by: Alexis Yen M.D. on 01/12/2018 at 9:44 Electronically approved by: Alexis Yen M.D. on 01/12/2018 at 9:44
[2018-01-12] MEDS: BALSAM PERU/CASTOR OIL 60 GM OINT...G. TP SCH ×2 (10:24→18:42)
[2018-01-12] MEDS: COLLAGENASE OINTMENT 30 GM TUBE TP SCH (10:24)
[2018-01-12] MEDS: DIGOXIN 0.125 MG TAB PO SCH (10:26)
[2018-01-12] MEDS: POTASSIUM CHLORIDE 10 MEQ TABCR PO SCH (10:26)
[2018-01-12] MEDS: FAMOTIDINE 20 MG TAB PO SCH ×2 (10:27→17:00)
[2018-01-12] MEDS: DOXYCYCLINE HYCLATE TABLET 100 MG TAB PO SCH ×2 (10:27→20:24)
[2018-01-12] MEDS: HYDROCODONE/APAP 5MG-325MG TAB PO PRN (10:31)
--- NOTE | 2018-01-12 11:42 | Diagnostic Imaging Report ---
EXAMINATION: MRI abdomen without contrast. TECHNIQUE: Axial T1 in and out of phase, axial T2 fat sat, coronal T2 with and without fat sat, axial DWI and ADC MR images of the abdomen were performed. No intravenous gadolinium was given due to decreased infarct. CLINICAL HISTORY: Left renal mass COMPARISON: CT chest 01/08/2018 FINDINGS: LACK OF GADOLINIUM DECREASES SENSITIVITY FOR DETECTION OF INTRA-ABDOMINAL PATHOLOGY. LOWER THORAX: Interval improvement in previously visualized right-sided pleural effusion. Stable trace to small left pleural effusion. Bilateral lower lobe associated atelectasis. LIVER: No hepatic signal abnormality. The liver is normal in size, measuring 13 cm in the right midclavicular line. Questionable subtle nodularity of the hepatic contour. No focal hepatic lesions. BILIARY: No intra or extrahepatic ductal dilatation or filling defect. The gallbladder has a normal appearance. PANCREAS: No mass or ductal dilatation. SPLEEN: No splenomegaly. ADRENALS: Thickening of bilateral adrenal glands, left greater than right, without discrete focal lesions. KIDNEYS: No hydronephrosis or mass in the imaged portion of the kidneys. No hydronephrosis or evidence of obstruction. 3.7 x 3.6 x 3.5 cm T2 mildly hyperintense, T1 isointense lesion with central T2 hyperintensity likely representing necrosis (series 6, image 25) in the lateral interpolar left kidney. This lesion shows mild diffusion restriction. No other solid or cystic lesions. PERITONEUM / RETROPERITONEUM: Interval resolution of previously visualized upper abdominal ascites. LYMPH NODES: No upper abdominal lymphadenopathy. VESSELS: Normal flow voids are identified. BONES AND SOFT TISSUES: Degenerative changes in the lumbosacral spine. Vertebroplasty changes at L3 and L4. A 1.9 cm T2 hyperintense lesion in the sacrum (series 11, image 12), shows signal dropout on fat-suppressed images, likely representing a hemangioma. IMPRESSION: 1. 3.7 cm mildly T2 hyperintense solid lesion with likely central necrosis in the lateral interpolar left kidney corresponding to the abnormality seen on prior CT chest, with mild diffusion restriction, suspicious for RCC. Further characterization is limited by the lack of intravenous contrast. 2. Interval improvement in right-sided pleural effusion. Interval resolution of previously visualized ascites. 3. Thickening of bilateral adrenal glands, left greater than right, suggestive of hyperplasia. No focal lesions are identified. 4. Questionable subtle nodularity of the hepatic contour, which may reflect underlying cirrhosis. Signed by: Angel ThomsonD. on 01/12/2018 11:39 AM
[2018-01-12] MEDS: WARFARIN SOD 5 MG TAB PO SCH (17:00)
[2018-01-12] MEDS: CEFTRIAXONE SOD 1 GM VIAL IV SCH (18:55)
[2018-01-12] MEDS: ATORVASTATIN 10 MG TAB PO SCH (20:24)
--- NOTE | 2018-01-12 22:41 | Diagnostic Imaging Report ---
CHEST XRAY POST PROCEDURE, 01/12/2018 10:27 PM Technique: CHEST XRAY POST PROCEDURE Comparison: 01/12/2018 Clinical history: Status post thoracentesis Findings: See Impression Impression: Limited by portable technique and soft tissue attenuation 1. Decreased now small right pleural effusion. Small left pleural effusion. No pneumothorax. 2. Stable mildly enlarged cardiac silhouette. Signed by: Dr Sonya Aguilar MD on 01/12/2018 10:38 PM
[2018-01-12 23:47] LABS: BODY FLUID APPEARANCE CLOUDY; BODY FLUID COLOR RED; BODY FLUID TYPE PLEURAL
[2018-01-12 23:49] LABS: LYMPHOCYTES,BODY FLUID 83 %; MONO/MACROPHG,BODY FLUID 5 %; NEUTROPHILS,BODY FLUID 12 %; RBC,BODY FLUID 12189 cells/uL; WBC,BODY FLUID 347 cells/uL
[2018-01-13] VITALS (8 sets, daily range): BP systolic 103–123; BP diastolic 64–87
[2018-01-13] MEDS: HYDROCODONE/APAP 5MG-325MG TAB PO PRN ×2 (00:24→22:49)
[2018-01-13] MEDS: IPRATROPIUM BROMIDE 0.02% 2.5 ML NEB NEB SCH ×6 (03:00→23:41)
[2018-01-13] MEDS: LEVOTHYROXINE SODIUM 75 MCG TAB PO SCH (05:37)
[2018-01-13] MEDS: METOPROLOL TARTRATE 25 MG TAB PO SCH ×3 (05:37→17:15)
[2018-01-13] MEDS: INSULIN LISPRO 100 UNIT/1 ML 3ML VIAL SQ SCH ×4 (07:30→21:00)
[2018-01-13] MEDS: DOXYCYCLINE HYCLATE TABLET 100 MG TAB PO SCH ×2 (08:05→21:25)
[2018-01-13] MEDS: METFORMIN HCL 500 MG TAB CR PO SCH ×2 (08:05→16:24)
[2018-01-13] MEDS: ENOXAPARIN SODIUM INJ 100 MG/ML SYR SC SCH ×2 (08:05→21:25)
[2018-01-13] MEDS: FUROSEMIDE 40 MG TAB PO SCH (08:05)
[2018-01-13] MEDS: GLIPIZIDE 5 MG TAB PO SCH (08:05)
[2018-01-13] MEDS: FAMOTIDINE 20 MG TAB PO SCH ×2 (08:05→16:24)
[2018-01-13] MEDS: DIGOXIN 0.125 MG TAB PO SCH (08:06)
[2018-01-13] MEDS: POTASSIUM CHLORIDE 10 MEQ TABCR PO SCH (08:06)
[2018-01-13] MEDS: BALSAM PERU/CASTOR OIL 60 GM OINT...G. TP SCH ×2 (08:08→16:24)
[2018-01-13] MEDS: COLLAGENASE OINTMENT 30 GM TUBE TP SCH (08:08)
[2018-01-13] MEDS: WARFARIN SOD 5 MG TAB PO SCH (16:24)
[2018-01-13] MEDS: CEFTRIAXONE SOD 1 GM VIAL IV SCH (16:24)
[2018-01-13] MEDS: ATORVASTATIN 10 MG TAB PO SCH (21:25)
[2018-01-14] MEDS: IPRATROPIUM BROMIDE 0.02% 2.5 ML NEB NEB SCH ×5 (02:27→19:15)
[2018-01-14 04:18] VITALS: BP 110/72
[2018-01-14 05:04] LABS: BASOPHILS # (AUTO) 0.1 (0.0-0.1); BASOPHILS % 1.2 % (0.0-1.0); EOSINOPHILS # (AUTO) 0.3 (0.0-0.4); EOSINOPHILS % 4.6 % (0.0-6.0); HEMATOCRIT 35.4 % (34.2-44.1); HEMOGLOBIN 10.7 g/dL (12.0-16.0); LYMPHOCYTES # (AUTO) 1.8 (1.0-3.2); LYMPHOCYTES % 26.3 % (18.0-39.1); MEAN CORPUSCULAR HEMOGLOBIN 27.6 pg (28-32); MEAN CORPUSCULAR HGB CONC 30.2 g/dL (31-35); MEAN CORPUSCULAR VOLUME 91.2 fL (81-99); MONOCYTES # (AUTO) 0.8 (0.2-0.8); MONOCYTES % 12.3 % (4.4-11.3); NEUTROPHILS # (AUTO) 3.7 (2.1-6.9); NEUTROPHILS % 54.7 % (38.7-80.0); PLATELET COUNT 264 x10e3/uL (140-360); RED BLOOD COUNT 3.88 x10e6/uL (3.6-5.1); RED CELL DISTRIBUTION WIDTH 16.3 % (11.7-14.4)
[2018-01-14] MEDS: METOPROLOL TARTRATE 25 MG TAB PO SCH ×4 (05:10→17:24)
[2018-01-14] MEDS: LEVOTHYROXINE SODIUM 75 MCG TAB PO SCH (05:10)
[2018-01-14 05:11] LABS: INR 1.27; PROTHROMBIN TIME 14.9 seconds (11.9-14.5)
[2018-01-14 05:18] LABS: ALANINE AMINOTRANSFERASE 20 IU/L (0-55); ALBUMIN 2.6 g/dL (3.5-5.0); ALBUMIN/GLOBULIN RATIO 0.7 (0.8-2.0); ALKALINE PHOSPHATASE 100 IU/L (40-150); ANION GAP 13.6 mmol/L (8-16); BLOOD UREA NITROGEN 17 mg/dL (7-26); BUN/CREATININE RATIO 20 (6-25); CALCIUM 9.4 mg/dL (8.4-10.2); CARBON DIOXIDE 35 mmol/L (22-29); CHLORIDE 92 mmol/L (98-107); CREATININE, SERUM 0.84 mg/dL (0.57-1.11); EST GLOMERULAR FILTRATION RATE > 60 ML/MIN (60-); GLUCOSE 111 mg/dL (74-118); POTASSIUM 3.6 mmol/L (3.5-5.1); SODIUM 137 mmol/L (136-145)
[2018-01-14 07:30] VITALS: BP 115/73
[2018-01-14] MEDS: INSULIN LISPRO 100 UNIT/1 ML 3ML VIAL SQ SCH ×4 (07:30→21:00)
[2018-01-14] MEDS: METFORMIN HCL 500 MG TAB CR PO SCH ×2 (08:00→16:43)
[2018-01-14] MEDS: GLIPIZIDE 5 MG TAB PO SCH (08:00)
[2018-01-14] MEDS: DIGOXIN 0.125 MG TAB PO SCH (08:01)
[2018-01-14] MEDS: BALSAM PERU/CASTOR OIL 60 GM OINT...G. TP SCH ×2 (08:01→16:45)
[2018-01-14] MEDS: FUROSEMIDE 40 MG TAB PO SCH (08:01)
[2018-01-14] MEDS: ENOXAPARIN SODIUM INJ 100 MG/ML SYR SC SCH ×2 (08:01→21:15)
[2018-01-14] MEDS: FAMOTIDINE 20 MG TAB PO SCH ×2 (08:01→16:44)
[2018-01-14] MEDS: COLLAGENASE OINTMENT 30 GM TUBE TP SCH (08:01)
[2018-01-14] MEDS: POTASSIUM CHLORIDE 10 MEQ TABCR PO SCH (08:01)
[2018-01-14] MEDS: DOXYCYCLINE HYCLATE TABLET 100 MG TAB PO SCH ×2 (08:01→21:15)
[2018-01-14 12:30] VITALS: BP 129/86
--- NOTE | 2018-01-14 16:00 | Diagnostic Imaging Report ---
Ventilation/perfusion lung scan Clinical Information: 68 F with dyspnea. Bilateral pleural effusions, s/p thoracentesis. Comparison: Chest radiograph 01/12/2018 Discussion: Xenon-133 gas 11 mCi was administered via inhalation. Dynamic images of the lungs in the posterior projection were obtained through single breath, equilibrium, and washout phases. Distribution of tracer activity is minimally irregular throughout the lungs. There are no segmental ventilatory defects. Washout of tracer is diffusely delayed with bibasilar air trapping. Distribution of tracer in the right lung is diffusely decreased compared to the left lung. Perfusion images of the lungs were obtained in multiple projections following intravenous administration of approximately 6 mCi of Tc-99m MAA. Distribution of tracer is mildly irregular throughout the lungs. There are no segmental perfusion defects of any size. Distribution of tracer activity is diffusely decreased throughout the right lung compared to the left lung. The cardiomediastinal silhouette is enlarged. Impression: 1. Scan findings represent a VERY LOW probability for acute pulmonary embolic disease based on the PIOPED II criteria. Scan evidence of obstructive lung disease. 2. Scan findings are compatible with diffuse parenchymal and/or obstructive lung disease. Pleural effusion is noted on the right. 3. Enlarged cardiac silhouette. Signed by: Dr. Zuri Rodriguez M.D. on 01/14/2018 3:57 PM
[2018-01-14 16:12] VITALS: BP 115/61
[2018-01-14] MEDS: WARFARIN SOD 5 MG TAB PO SCH (16:43)
[2018-01-14] MEDS: CEFTRIAXONE SOD 1 GM VIAL IV SCH (16:43)
[2018-01-14 20:00] VITALS: BP 108/65
[2018-01-14] MEDS: ATORVASTATIN 10 MG TAB PO SCH (21:15)
[2018-01-14 22:36] VITALS: BP 108/65
[2018-01-15] VITALS (8 sets, daily range): BP systolic 109–133; BP diastolic 56–73
[2018-01-15] MEDS: METOPROLOL TARTRATE 25 MG TAB PO SCH ×4 (00:32→21:27)
[2018-01-15 05:35] LABS: INR 1.25; PROTHROMBIN TIME 14.8 seconds (11.9-14.5)
[2018-01-15] MEDS: LEVOTHYROXINE SODIUM 75 MCG TAB PO SCH (05:40)
[2018-01-15] MEDS: IPRATROPIUM BROMIDE 0.02% 2.5 ML NEB NEB SCH ×4 (07:00→19:20)
[2018-01-15] MEDS: INSULIN LISPRO 100 UNIT/1 ML 3ML VIAL SQ SCH ×4 (07:30→21:00)
[2018-01-15] MEDS: METFORMIN HCL 500 MG TAB CR PO SCH ×2 (09:12→17:30)
[2018-01-15] MEDS: GLIPIZIDE 5 MG TAB PO SCH (09:12)
[2018-01-15] MEDS: COLLAGENASE OINTMENT 30 GM TUBE TP SCH (09:13)
[2018-01-15] MEDS: POTASSIUM CHLORIDE 10 MEQ TABCR PO SCH (09:13)
[2018-01-15] MEDS: BALSAM PERU/CASTOR OIL 60 GM OINT...G. TP SCH ×2 (09:13→17:30)
[2018-01-15] MEDS: DIGOXIN 0.125 MG TAB PO SCH (09:13)
[2018-01-15] MEDS: DOXYCYCLINE HYCLATE TABLET 100 MG TAB PO SCH (09:13)
[2018-01-15] MEDS: FUROSEMIDE 40 MG TAB PO SCH ×2 (09:13→17:30)
[2018-01-15] MEDS: FAMOTIDINE 20 MG TAB PO SCH ×2 (09:13→17:30)
[2018-01-15] MEDS: ENOXAPARIN SODIUM INJ 100 MG/ML SYR SC SCH (09:13)
[2018-01-15] MEDS: POTASSIUM CHLORIDE 20 MEQ TAB CR PO SCH (12:51)
[2018-01-15] MEDS: CEFTRIAXONE SOD 1 GM VIAL IV SCH (17:30)
--- NOTE | 2018-01-15 17:34 | Diagnostic Imaging Report ---
EXAMINATION: CHEST 2 VIEWS INDICATION: Pain in the back. Status post thoracocentesis. \S\f/u COMPARISON: 01/12/2018 FINDINGS: Limited by body habitus. PA and lateral views TUBES and LINES: None. LUNGS and PLEURA: Low lung volumes. Suspected mild interstitial edema. Small right pleural effusion. No visible pneumothorax. HEART AND MEDIASTINUM: Enlarged cardiomediastinal silhouette. BONES AND SOFT TISSUES: Generalized demineralization limits evaluation. No acute osseous lesion. Multilevel degenerative changes of thoracic spine. Lower lumbar spine vertebroplasty. Soft tissues are unremarkable. UPPER ABDOMEN: No free air under the diaphragm. IMPRESSION: Limited by body habitus and low lung volumes. Small left pleural effusion, decreased from prior exam. Suspected mild interstitial edema. Signed by: Dr. Aguila Dale MD on 01/15/2018 5:31 PM
[2018-01-15] MEDS: ATORVASTATIN 10 MG TAB PO SCH (21:27)
[2018-01-16] VITALS (14 sets, daily range): BP systolic 105–130; BP diastolic 53–78
[2018-01-16] MEDS: LEVOTHYROXINE SODIUM 75 MCG TAB PO SCH (05:43)
[2018-01-16] MEDS: METOPROLOL TARTRATE 25 MG TAB PO SCH ×3 (06:00→21:26)
[2018-01-16 06:24] LABS: BASOPHILS # (AUTO) 0.1 (0.0-0.1); EOSINOPHILS # (AUTO) 0.3 (0.0-0.4); EOSINOPHILS % 4.9 % (0.0-6.0); HEMATOCRIT 37.5 % (34.2-44.1); HEMOGLOBIN 11.2 g/dL (12.0-16.0); LYMPHOCYTES # (AUTO) 1.4 (1.0-3.2); LYMPHOCYTES % 22.6 % (18.0-39.1); MEAN CORPUSCULAR HEMOGLOBIN 27.5 pg (28-32); MEAN CORPUSCULAR HGB CONC 29.9 g/dL (31-35); MEAN CORPUSCULAR VOLUME 92.1 fL (81-99); MONOCYTES # (AUTO) 0.7 (0.2-0.8); NEUTROPHILS # (AUTO) 3.6 (2.1-6.9); NEUTROPHILS % 58.4 % (38.7-80.0); PLATELET COUNT 296 x10e3/uL (140-360); RED BLOOD COUNT 4.07 x10e6/uL (3.6-5.1); RED CELL DISTRIBUTION WIDTH 16.6 % (11.7-14.4)
[2018-01-16 06:26] LABS: INR 1.22; PROTHROMBIN TIME 14.5 seconds (11.9-14.5)
[2018-01-16 06:53] LABS: ALANINE AMINOTRANSFERASE 23 IU/L (0-55); ALBUMIN 2.9 g/dL (3.5-5.0); ALBUMIN/GLOBULIN RATIO 0.7 (0.8-2.0); ALKALINE PHOSPHATASE 105 IU/L (40-150); ANION GAP 13.9 mmol/L (8-16); BLOOD UREA NITROGEN 16 mg/dL (7-26); BUN/CREATININE RATIO 18 (6-25); CALCIUM 9.7 mg/dL (8.4-10.2); CARBON DIOXIDE 34 mmol/L (22-29); CHLORIDE 94 mmol/L (98-107); EST GLOMERULAR FILTRATION RATE > 60 ML/MIN (60-); GLUCOSE 133 mg/dL (74-118); POTASSIUM 3.9 mmol/L (3.5-5.1); SODIUM 138 mmol/L (136-145)
[2018-01-16] MEDS: IPRATROPIUM BROMIDE 0.02% 2.5 ML NEB NEB SCH ×4 (07:00→19:56)
--- NOTE | 2018-01-16 07:26 | Diagnostic Imaging Report ---
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 The patient was placed in the upright position. The right posterior chest was prepped and draped in standard sterile fashion. 1% lidocaine was infiltrated into the skin and subcutaneous tissues for local anesthesia. Then under continuous sonographic guidance a 5 Fr catheter was advanced into the right pleural space. The catheter was advanced off the needle and connected to vacuum bottle with subsequent evacuation of 750 cc of serosanguinous fluid. The catheter was removed and a sterile, occlusive dressing was applied. Sample was sent to the lab. The patient tolerated the procedure well. FINDINGS: Moderate right pleural effusion. IMPRESSION: Ultrasound-guided right thoracentesis with evacuation of 750 cc of serosanguinous fluid. Signed by: Dr. Germaine Whitt MD on 01/16/2018 7:23 AM
[2018-01-16] MEDS: INSULIN LISPRO 100 UNIT/1 ML 3ML VIAL SQ SCH ×4 (07:30→21:00)
[2018-01-16] MEDS: GLIPIZIDE 5 MG TAB PO SCH (08:00)
[2018-01-16] MEDS: METFORMIN HCL 500 MG TAB CR PO SCH ×2 (08:00→17:16)
[2018-01-16] MEDS: COLLAGENASE OINTMENT 30 GM TUBE TP SCH (08:35)
[2018-01-16] MEDS: FAMOTIDINE 20 MG TAB PO SCH ×2 (09:00→17:16)
[2018-01-16] MEDS: BALSAM PERU/CASTOR OIL 60 GM OINT...G. TP SCH ×2 (09:00→17:16)
[2018-01-16] MEDS: FUROSEMIDE 40 MG TAB PO SCH ×2 (09:00→17:16)
[2018-01-16] MEDS ORDERED: FENTANYL CITRATE/PF 100MCG/2 ML INJ ONE (11:18)
[2018-01-16] MEDS ORDERED: MIDAZOLAM HCL 2 MG/2 ML VIAL ONE (11:18)
[2018-01-16] MEDS ORDERED: GELATIN SPONGE 12-7MM ONE (12:13)
--- NOTE | 2018-01-16 15:08 | Diagnostic Imaging Report ---
CT Guided Fine Needle Aspiration and Core Biopsy of Left Renal Mass Comparison: MRI Abdomen 01/10/18 Consent: The nature of the procedure, including its risks, benefits and alternatives was explained to the patient who understood and gave consent. Operators: Germaine Whitt MD Anesthesia: Intravenous conscious sedation was administered by radiology nursing. Continuous hemodynamic and respiratory monitoring was performed, including the use of pulse oximetry. Medications: 10 cc of 1% subcutaneous lidocaine Fentanyl and Versed per nursing administration record TECHNIQUE: The patient was placed in the prone position. Initial CT demonstrated the left renal posterior exophytic mass. A satisfactory path to the mass was identified. The skin of the left back was marked, prepped, draped and anesthetized with 1% lidocaine. With CT guidance, a 16 gauge introducer needle was inserted into the left renal mass. Fine needle aspirates with a 22 gauge Chiba needle were performed. At this time, patient moved, and due to concern about retraction of the needle, a repeat CT was performed. This demonstrated that the introducer needle had displaced out of the kidney and that there was a small perinephric hematoma. Patient was hemodynamically stable. Therefore, the introducer needle was re-advanced into the lesion. Subsequently, with CT guidance core biopsies were obtained with an 18 gauge core biopsy device. Samples were sent to Pathology. Gelfoam embolization of the tract was performed and the introducer needle was subsequently removed. Sterile bandage was placed. CONDITION/COMPLICATIONS: Stable condition with stability of small left perinephric hematoma at [address] The patient will recover as an inpatient. Four hours of bedrest. IMPRESSION: Needle aspiration and core biopsy of left renal mass with CT guidance as above. Signed by: Dr. Germaine Whitt MD on 01/16/2018 3:05 PM
[2018-01-16 16:49] LABS: INR 1.24; PROTHROMBIN TIME 14.7 seconds (11.9-14.5)
[2018-01-16] MEDS: POTASSIUM CHLORIDE 20 MEQ TAB CR PO SCH (17:16)
[2018-01-16] MEDS: POTASSIUM CHLORIDE 10 MEQ TABCR PO SCH (17:16)
[2018-01-16] MEDS: DIGOXIN 0.125 MG TAB PO SCH (17:16)
[2018-01-16] MEDS: CEFTRIAXONE SOD 1 GM VIAL IV SCH (17:16)
[2018-01-16] MEDS: ACETAMINOPHEN 325 MG TAB PO PRN (17:24)
[2018-01-16] MEDS: ATORVASTATIN 10 MG TAB PO SCH (21:26)
[2018-01-17] VITALS: BP 139/81
[2018-01-17] MEDS: IPRATROPIUM BROMIDE 0.02% 2.5 ML NEB NEB SCH ×2 (00:22→06:45)
[2018-01-17 04:00] VITALS: BP 112/64
[2018-01-17 05:38] LABS: BASOPHILS # (AUTO) 0.1 (0.0-0.1); BASOPHILS % 1.1 % (0.0-1.0); EOSINOPHILS # (AUTO) 0.3 (0.0-0.4); EOSINOPHILS % 4.2 % (0.0-6.0); HEMATOCRIT 35.3 % (34.2-44.1); HEMOGLOBIN 10.6 g/dL (12.0-16.0); LYMPHOCYTES # (AUTO) 1.6 (1.0-3.2); LYMPHOCYTES % 24.7 % (18.0-39.1); MEAN CORPUSCULAR HEMOGLOBIN 27.7 pg (28-32); MEAN CORPUSCULAR VOLUME 92.2 fL (81-99); MONOCYTES % 15.1 % (4.4-11.3); NEUTROPHILS # (AUTO) 3.5 (2.1-6.9); NEUTROPHILS % 54.1 % (38.7-80.0); PLATELET COUNT 247 x10e3/uL (140-360); RED BLOOD COUNT 3.83 x10e6/uL (3.6-5.1); RED CELL DISTRIBUTION WIDTH 16.7 % (11.7-14.4)
[2018-01-17 05:51] LABS: INR 1.2; PROTHROMBIN TIME 14.3 seconds (11.9-14.5)
[2018-01-17] MEDS: METOPROLOL TARTRATE 25 MG TAB PO SCH ×2 (06:00→14:33)
[2018-01-17] MEDS: LEVOTHYROXINE SODIUM 75 MCG TAB PO SCH (06:00)
[2018-01-17 06:04] LABS: ANION GAP 13.1 mmol/L (8-16); CALCIUM 9.5 mg/dL (8.4-10.2); CREATININE, SERUM 0.95 mg/dL (0.57-1.11); POTASSIUM 4.1 mmol/L (3.5-5.1)
[2018-01-17] MEDS: INSULIN LISPRO 100 UNIT/1 ML 3ML VIAL SQ SCH ×3 (07:30→16:30)
[2018-01-17 07:37] VITALS: BP 113/84
[2018-01-17] MEDS: COLLAGENASE OINTMENT 30 GM TUBE TP SCH (09:00)
[2018-01-17] MEDS: GLIPIZIDE 5 MG TAB PO SCH (09:39)
[2018-01-17] MEDS: METFORMIN HCL 500 MG TAB CR PO SCH ×2 (09:39→17:24)
[2018-01-17] MEDS: POTASSIUM CHLORIDE 20 MEQ TAB CR PO SCH (09:39)
[2018-01-17] MEDS: POTASSIUM CHLORIDE 10 MEQ TABCR PO SCH (09:39)
[2018-01-17] MEDS: DIGOXIN 0.125 MG TAB PO SCH (09:40)
[2018-01-17] MEDS: FAMOTIDINE 20 MG TAB PO SCH (09:40)
[2018-01-17] MEDS: FUROSEMIDE 40 MG TAB PO SCH ×2 (09:40→16:30)
[2018-01-17 11:29] VITALS: BP 123/81
[2018-01-17] MEDS: BALSAM PERU/CASTOR OIL 60 GM OINT...G. TP SCH ×2 (13:20→17:00)
[2018-01-17 14:04] VITALS: BP 123/81
--- NOTE | 2018-01-17 14:09 | Discharge Summary ---
PRIMARY CARE DOCTOR: Dr. Miguel Angel Garza with [facility]. FINAL DIAGNOSIS: Recurrent right-sided exudative pleural effusion, status post thoracentesis x2. SECONDARY DIAGNOSES 1. Left renal mass. 2. Atrial fibrillation with rapid ventricular response, now rate controlled. 3. Possible underlying cirrhosis on magnetic resonance imaging of the abdomen with negative hepatitis panel. 4. Previous old stroke. 5. Debility. CONSULTANTS 1. Dr. Brand, looper fixer. 2. Dr. Peralta, cardiology. PROCEDURES/STUDIES PERFORMED 1. Thoracentesis x2. 2. Left renal mass biopsy. 3. V/Q scan with very low probability for pulmonary embolism. 4. Abdominal magnetic resonance imaging. 5. Bilateral lower extremity Doppler negative for deep vein thrombosis. 6. Renal ultrasound. 7. Chest computed tomography. HISTORY: Per H\T\P. HOSPITAL COURSE: Patient was admitted with symptomatic right-sided pleural effusion. This was tapped twice. Both times it was exudative. Given the fact that on her MRI of the abdomen her left renal mass is suspicious for renal cell carcinoma, a biopsy was done. At this time the pathology is still pending, but I will follow it up. As far as her AFib with RVR, this is being rate controlled with assistance from Cardiology on metoprolol and digoxin. We will go ahead and resume her Coumadin. The patient did undergo a course of empiric antibiotics for her exudative pleural effusion. Given her debility, patient will be discharged to [facility] for skilled PT. Patient was seen and examined today. It took 35 minutes total to discharge this patient. CONDITION ON DISCHARGE: Improved. DISCHARGE MEDICATIONS: Please see medication reconciliation form. ARIS QUEZADA M.D. Job#: [id number]
[2018-01-17 15:44] VITALS: BP 136/76
[2018-01-17] MEDS ORDERED: WARFARIN SOD 5 MG TAB PO SCH (17:00)
== END 2018-01-17 19:06 | DRG 291 ==
LOC: ER 15:29 → ERHOLD 18:45 → MED/SURG2 20:52 → ICU 01-08 09:50 → IMCU 01-08 14:04 → MED/SURG3 01-14 15:38
PROVIDERS: ADMIT Internal Medicine; ATTEND Internal Medicine
PROC: 0W993ZX Drainage of Right Pleural Cavity, Percutaneous Approach, Diagnostic (ICD-10-PCS; 2018-01-09)
PROC: 02HV33Z Insertion of Infusion Device into Superior Vena Cava, Percutaneous Approach (ICD-10-PCS; 2018-01-10)
PROC: 0W993ZX Drainage of Right Pleural Cavity, Percutaneous Approach, Diagnostic (ICD-10-PCS; principal; 2018-01-12)
PROC: 0TB13ZX Excision of Left Kidney, Percutaneous Approach, Diagnostic (ICD-10-PCS; 2018-01-16)
PROC: 0T913ZX Drainage of Left Kidney, Percutaneous Approach, Diagnostic (ICD-10-PCS; 2018-01-16)
DX: I11.0 Hypertensive heart disease with heart failure (principal); A41.9 Sepsis, unspecified organism; J18.9 Pneumonia, unspecified organism; J90 Pleural effusion, not elsewhere classified; I69.851 Hemiplegia and hemiparesis following other cerebrovascular disease affecting right dominant side; C64.2 Malignant neoplasm of left kidney, except renal pelvis; I50.33 Acute on chronic diastolic (congestive) heart failure; N28.89 Other specified disorders of kidney and ureter; K74.60 Unspecified cirrhosis of liver; R53.81 Other malaise; I48.2 Chronic atrial fibrillation; Z79.01 Long term (current) use of anticoagulants; E03.9 Hypothyroidism, unspecified; I89.0 Lymphedema, not elsewhere classified; I69.892 Facial weakness following other cerebrovascular disease; I69.820 Aphasia following other cerebrovascular disease; Z86.718 Personal history of other venous thrombosis and embolism; C50.919 Malignant neoplasm of unspecified site of unspecified female breast; Z79.899 Other long term (current) drug therapy; I87.2 Venous insufficiency (chronic) (peripheral); Z90.11 Acquired absence of right breast and nipple; R79.1 Abnormal coagulation profile; E87.6 Hypokalemia; E11.69 Type 2 diabetes mellitus with other specified complication; Z79.4 Long term (current) use of insulin
CPT/HCPCS: 32555; 36415; 36600; 50200; 71045; 71046; 71250; 74181; 74470; 76770; 77012; 78582; 80048; 80053; 80162; 82378; 82550; 82553; 82805; 82945; 82948; 83615; 83735; 83880; 84157; 84443; 84484; 85025; 85610; 85730; 87070; 87116; 87205; 87206; 88112; 88305; 89051; 93005; 93306; 93970; 94640; 94660; 96372; 97139; 99152; 99153; 99284; A9540; A9558; J0456; J0696; J1160; J1650; J1940; J2250; J3370; J3430; J7050

== ENCOUNTER 2022-01-18 17:51 | Inpatient (IN) | payer MEDICARE, OTHER ==
[~2022-01-18] VITALS: Ht 168.9 cm; Wt 107.5 kg
[~2022-01-18 17:51] MED LIST changes: +AMIODARONE PO; +DILTIAZEM 24HR120 M1; +METOPROLOL SUCC25 MG PO; +PEPCID20 MG PO
[2022-01-18] MEDS: Morphine 4mg INJECTION 4 MG/ML INJ IV PRN (18:20)
[2022-01-18] MEDS: ONDANSETRON HCL INJ 2MG/ML 2ML 2 MG/ML VIAL IV PRN (18:20)
[2022-01-18 18:21] LABS: BASOPHILS # (AUTO) 0.1 (0.0-0.1); BASOPHILS % 0.7 % (0.0-1.0); EOSINOPHILS # (AUTO) 0.2 (0.0-0.4); EOSINOPHILS % 1.5 % (0.0-6.0); HEMATOCRIT 43.3 % (34.2-44.1); HEMOGLOBIN 13.7 g/dL (12.0-16.0); LYMPHOCYTES # (AUTO) 1.4 (1.0-3.2); LYMPHOCYTES % 11.5 % (18.0-39.1); MEAN CORPUSCULAR HGB CONC 31.6 g/dL (31-35); MEAN CORPUSCULAR VOLUME 94.7 fL (81-99); MONOCYTES # (AUTO) 0.9 (0.2-0.8); MONOCYTES % 7.3 % (4.4-11.3); NEUTROPHILS # (AUTO) 9.4 (2.1-6.9); NEUTROPHILS % 78.4 % (38.7-80.0); PLATELET COUNT 219 x10e3/uL (140-360); RED BLOOD COUNT 4.57 x10e6/uL (3.6-5.1)
[2022-01-18 18:41] LABS: ALBUMIN 3.5 g/dL (3.5-5.0); ALBUMIN/GLOBULIN RATIO 0.9 (0.8-2.0); CALCIUM 9.4 mg/dL (8.4-10.2); CREATININE, SERUM 0.96 mg/dL (0.57-1.11)
[2022-01-18] MEDS ORDERED: ONDANSETRON HCL INJ 2MG/ML 2ML 2 MG/ML VIAL IV PRN (19:45)
[2022-01-18] MEDS ORDERED: SODIUM CHLORIDE FLUSH 10 ML SYR INJ PRN (19:45)
[2022-01-18] MEDS: HYDROCODONE/APAP 5MG-325MG TAB PO PRN (20:50)
[2022-01-18] MEDS ORDERED: FENTANYL CITRATE/PF 100MCG/2 ML INJ IV ONE (21:12)
[2022-01-18] MEDS ORDERED: ONDANSETRON HCL INJ 2MG/ML 2ML 2 MG/ML VIAL ONE (21:24)
[2022-01-18] MEDS ORDERED: FENTANYL CITRATE/PF 100MCG/2 ML INJ ONE (21:24)
[2022-01-18] MEDS ORDERED: ACETAMINOPHEN 325 MG TAB PO PRN (21:30)
[2022-01-18 22:58] LABS: BASOPHILS # (AUTO) 0.1 (0.0-0.1); BASOPHILS % 0.6 % (0.0-1.0); EOSINOPHILS % 0.1 % (0.0-6.0); HEMATOCRIT 36.3 % (34.2-44.1); HEMOGLOBIN 11.8 g/dL (12.0-16.0); LYMPHOCYTES # (AUTO) 1.1 (1.0-3.2); LYMPHOCYTES % 7.4 % (18.0-39.1); MEAN CORPUSCULAR HEMOGLOBIN 29.8 pg (28-32); MEAN CORPUSCULAR HGB CONC 32.5 g/dL (31-35); MEAN CORPUSCULAR VOLUME 91.7 fL (81-99); MONOCYTES # (AUTO) 0.9 (0.2-0.8); MONOCYTES % 6.6 % (4.4-11.3); NEUTROPHILS # (AUTO) 12.1 (2.1-6.9); NEUTROPHILS % 84.8 % (38.7-80.0); PLATELET COUNT 211 x10e3/uL (140-360); RED BLOOD COUNT 3.96 x10e6/uL (3.6-5.1); RED CELL DISTRIBUTION WIDTH 14.1 % (11.7-14.4)
[2022-01-18] MEDS ORDERED: CEFTRIAXONE 2 GM in SODIUM CHLORIDE 0.9% 100 ML IV ONE (23:15)
[2022-01-18] MEDS: SODIUM CHLORIDE 0.9% 1000ML 1,000 ML IV SCH (23:22)
[2022-01-18] MEDS ORDERED: SODIUM CHLORIDE 0.9% 1000ML 1,000 ML ONE (23:29)
[2022-01-18] MEDS ORDERED: FENTANYL CITRATE/PF 100MCG/2 ML INJ IV PRN (23:45)
[2022-01-19] VITALS (9 sets, daily range): BP systolic 102–134; BP diastolic 53–76
[2022-01-19 06:11] LABS: BASOPHILS # (AUTO) 0.1 (0.0-0.1); BASOPHILS % 0.6 % (0.0-1.0); EOSINOPHILS % 0.1 % (0.0-6.0); HEMATOCRIT 35.2 % (34.2-44.1); HEMOGLOBIN 10.8 g/dL (12.0-16.0); LYMPHOCYTES # (AUTO) 1.7 (1.0-3.2); LYMPHOCYTES % 17.2 % (18.0-39.1); MEAN CORPUSCULAR HEMOGLOBIN 29.7 pg (28-32); MEAN CORPUSCULAR HGB CONC 30.7 g/dL (31-35); MEAN CORPUSCULAR VOLUME 96.7 fL (81-99); MONOCYTES # (AUTO) 1.1 (0.2-0.8); MONOCYTES % 10.5 % (4.4-11.3); NEUTROPHILS # (AUTO) 7.1 (2.1-6.9); NEUTROPHILS % 71.2 % (38.7-80.0); PLATELET COUNT 176 x10e3/uL (140-360); RED BLOOD COUNT 3.64 x10e6/uL (3.6-5.1); RED CELL DISTRIBUTION WIDTH 14.1 % (11.7-14.4)
[2022-01-19 06:22] LABS: INR 1.23; PROTHROMBIN TIME 16.6 seconds (11.9-14.5)
[2022-01-19 06:23] LABS: PARTIAL THROMBOPLASTIN TIME 31.5 seconds (23.8-35.5)
[2022-01-19] MEDS: Morphine 4mg INJECTION 4 MG/ML INJ IV PRN ×2 (06:29→14:03)
[2022-01-19] MEDS: ONDANSETRON HCL INJ 2MG/ML 2ML 2 MG/ML VIAL IV PRN (06:29)
[2022-01-19 06:32] LABS: ALBUMIN 2.8 g/dL (3.5-5.0); ANION GAP 14.5 mmol/L (8-16); CALCIUM 8.4 mg/dL (8.4-10.2); CREATININE, SERUM 1.08 mg/dL (0.57-1.11); POTASSIUM 4.5 mmol/L (3.5-5.1)
[2022-01-19] MEDS: CEFTRIAXONE 2 GM in SODIUM CHLORIDE 0.9% 100 ML IV SCH (08:33)
[2022-01-19] MEDS: SODIUM CHLORIDE 0.9% 1000ML 1,000 ML IV SCH ×2 (08:33→21:32)
[2022-01-19] MEDS: LEVOTHYROXINE SODIUM 75 MCG TAB PO SCH (08:34)
[2022-01-19] MEDS: FUROSEMIDE 20 MG TAB PO SCH (08:35)
[2022-01-19] MEDS: ATORVASTATIN 10 MG TAB PO SCH (08:35)
[2022-01-19] MEDS: FAMOTIDINE 20 MG TAB PO SCH ×2 (08:35→17:06)
[2022-01-19] MEDS: DILTIAZEM HCL ER 120 MG CAP PO SCH (08:36)
[2022-01-19] MEDS: METOPROLOL SUCCINATE 25 MG TAB XL PO SCH ×2 (08:37→17:00)
[2022-01-19] MEDS: LISINOPRIL 20 MG TAB PO SCH ×2 (08:37→17:00)
[2022-01-19] MEDS ORDERED: GLIPIZIDE 5 MG TAB PO SCH (09:00)
[2022-01-19] MEDS ORDERED: DEXTROSE 50% SYRINGE 50 ML IV PRN (12:15)
[2022-01-19] MEDS ORDERED: LATANOPROST2.5 ML OP (12:45)
[2022-01-19] MEDS ORDERED: CALCIUM ACETAT667 MG PO (12:45)
[2022-01-19] MEDS ORDERED: LISINOPRIL5 MG PO (12:45)
[2022-01-19] MEDS ORDERED: ATORVASTATIN CA10 MG PO (12:45)
[2022-01-19] MEDS ORDERED: METOPROLOL SUCC50 MG PO (12:45)
[2022-01-19] MEDS ORDERED: ELIQUIS5 MG PO (12:45)
[2022-01-19] MEDS ORDERED: DORZOLAMIDE-TIM10 ML OP (12:45)
[2022-01-19] MEDS ORDERED: VITAMIN D310 MCG PO (12:45)
[2022-01-19] MEDS ORDERED: DIGOXIN125 MCG PO (12:45)
[2022-01-19] MEDS ORDERED: BRIMONIDINE TART5 ML OP (12:45)
[2022-01-19] MEDS: INSULIN REGULAR, HUMAN 100 UNIT/1 ML SQ SCH ×2 (17:40→21:00)
[2022-01-20] VITALS: BP 105/60
[2022-01-20 04:00] VITALS: BP 123/71
[2022-01-20 05:17] LABS: BASOPHILS # (AUTO) 0.1 (0.0-0.1); EOSINOPHILS # (AUTO) 0.2 (0.0-0.4); EOSINOPHILS % 3.2 % (0.0-6.0); HEMATOCRIT 30.2 % (34.2-44.1); HEMOGLOBIN 9.2 g/dL (12.0-16.0); LYMPHOCYTES # (AUTO) 1.9 (1.0-3.2); LYMPHOCYTES % 31.3 % (18.0-39.1); MEAN CORPUSCULAR HGB CONC 30.5 g/dL (31-35); MEAN CORPUSCULAR VOLUME 98.4 fL (81-99); MONOCYTES # (AUTO) 0.7 (0.2-0.8); MONOCYTES % 11.9 % (4.4-11.3); NEUTROPHILS # (AUTO) 3.1 (2.1-6.9); NEUTROPHILS % 52.1 % (38.7-80.0); PLATELET COUNT 162 x10e3/uL (140-360); RED BLOOD COUNT 3.07 x10e6/uL (3.6-5.1); RED CELL DISTRIBUTION WIDTH 14.4 % (11.7-14.4)
[2022-01-20 05:37] LABS: ANION GAP 11.9 mmol/L (8-16); CREATININE, SERUM 0.77 mg/dL (0.57-1.11); POTASSIUM 3.9 mmol/L (3.5-5.1)
[2022-01-20] MEDS: SODIUM CHLORIDE 0.9% 1000ML 1,000 ML IV SCH ×2 (05:42→15:15)
[2022-01-20] MEDS: Morphine 4mg INJECTION 4 MG/ML INJ IV PRN ×2 (05:48→20:33)
[2022-01-20] MEDS: ONDANSETRON HCL INJ 2MG/ML 2ML 2 MG/ML VIAL IV PRN ×2 (05:48→20:33)
[2022-01-20] MEDS: INSULIN REGULAR, HUMAN 100 UNIT/1 ML SQ SCH ×4 (07:30→21:00)
[2022-01-20 08:00] VITALS: BP_SYST 114; BP_SYST 123; BP_DIAS 63; BP_DIAS 90
[2022-01-20] MEDS: METOPROLOL SUCCINATE 25 MG TAB XL PO SCH ×2 (09:00→17:00)
[2022-01-20] MEDS: FUROSEMIDE 20 MG TAB PO SCH (09:00)
[2022-01-20] MEDS: FAMOTIDINE 20 MG TAB PO SCH ×2 (09:00→17:00)
[2022-01-20] MEDS: LEVOTHYROXINE SODIUM 75 MCG TAB PO SCH (09:00)
[2022-01-20] MEDS: LISINOPRIL 20 MG TAB PO SCH ×2 (09:00→17:00)
[2022-01-20] MEDS: DILTIAZEM HCL ER 120 MG CAP PO SCH (09:00)
[2022-01-20] MEDS: CEFTRIAXONE 2 GM in SODIUM CHLORIDE 0.9% 100 ML IV SCH (09:00)
[2022-01-20] MEDS: ATORVASTATIN 10 MG TAB PO SCH (09:00)
[2022-01-20 11:49] VITALS: BP 113/62
[2022-01-20 15:52] VITALS: BP 133/67
[2022-01-20 20:00] VITALS: BP 116/57
[2022-01-20] MEDS ORDERED: ATORVASTATIN 10 MG TAB PO SCH (21:00)
[2022-01-20] MEDS: BRIMONIDINE TARTRATE (OPTH) 5 ML LIQD OP SCH (22:32)
[2022-01-20] MEDS: DORZOLAMIDE/TIMOLOL (OPTH SOL) 10 ML DRPETTE OP SCH (22:32)
[2022-01-21] VITALS: BP 117/50
[2022-01-21] MEDS: SODIUM CHLORIDE 0.9% 1000ML 1,000 ML IV SCH ×2 (01:46→21:55)
[2022-01-21 04:00] VITALS: BP 116/60
[2022-01-21 05:48] LABS: BASOPHILS # (AUTO) 0.1 (0.0-0.1); BASOPHILS % 0.8 % (0.0-1.0); EOSINOPHILS # (AUTO) 0.2 (0.0-0.4); EOSINOPHILS % 2.4 % (0.0-6.0); HEMOGLOBIN 8.6 g/dL (12.0-16.0); LYMPHOCYTES # (AUTO) 1.5 (1.0-3.2); LYMPHOCYTES % 20.5 % (18.0-39.1); MEAN CORPUSCULAR HEMOGLOBIN 29.7 pg (28-32); MEAN CORPUSCULAR HGB CONC 30.7 g/dL (31-35); MEAN CORPUSCULAR VOLUME 96.6 fL (81-99); MONOCYTES % 12.9 % (4.4-11.3); NEUTROPHILS # (AUTO) 4.7 (2.1-6.9); NEUTROPHILS % 62.9 % (38.7-80.0); PLATELET COUNT 166 x10e3/uL (140-360); RED CELL DISTRIBUTION WIDTH 14.3 % (11.7-14.4)
[2022-01-21 05:53] LABS: PROTHROMBIN TIME 14.1 seconds (11.9-14.5)
[2022-01-21] MEDS: INSULIN REGULAR, HUMAN 100 UNIT/1 ML SQ SCH ×4 (08:00→21:35)
[2022-01-21 08:30] VITALS: BP 130/71
[2022-01-21] MEDS: FAMOTIDINE 20 MG TAB PO SCH ×2 (09:00→17:00)
[2022-01-21] MEDS: LEVOTHYROXINE SODIUM 75 MCG TAB PO SCH (09:00)
[2022-01-21] MEDS: ATORVASTATIN 10 MG TAB PO SCH (09:00)
[2022-01-21] MEDS: FUROSEMIDE 20 MG TAB PO SCH (09:30)
[2022-01-21] MEDS: CEFTRIAXONE 2 GM in SODIUM CHLORIDE 0.9% 100 ML IV SCH (09:30)
[2022-01-21] MEDS: DILTIAZEM HCL ER 120 MG CAP PO SCH (09:35)
[2022-01-21] MEDS: LISINOPRIL 20 MG TAB PO SCH ×2 (09:36→17:00)
[2022-01-21] MEDS: METOPROLOL SUCCINATE 25 MG TAB XL PO SCH ×2 (09:38→17:00)
[2022-01-21] MEDS: ONDANSETRON HCL INJ 2MG/ML 2ML 2 MG/ML VIAL IV PRN (09:45)
[2022-01-21] MEDS: Morphine 4mg INJECTION 4 MG/ML INJ IV PRN (09:45)
[2022-01-21 09:48] VITALS: BP 130/71
[2022-01-21] MEDS: BRIMONIDINE TARTRATE (OPTH) 5 ML LIQD OP SCH ×2 (11:21→17:00)
[2022-01-21] MEDS: DORZOLAMIDE/TIMOLOL (OPTH SOL) 10 ML DRPETTE OP SCH ×2 (11:21→21:26)
[2022-01-21 12:01] VITALS: BP 125/62
[2022-01-21] MEDS ORDERED: ROCURONIUM BROMIDE 10 MG/ML 5ML VIAL IV ONE (12:14)
[2022-01-21] MEDS ORDERED: ONDANSETRON HCL INJ 2MG/ML 2ML 2 MG/ML VIAL ONE (12:14)
[2022-01-21] MEDS ORDERED: PROPOFOL IV EMULSION 10 MG/ML 20 ML VIAL ONE (12:14)
[2022-01-21] MEDS ORDERED: GLYCOPYRROLATE INJ 0.2 MG/ML VIAL ONE (12:14)
[2022-01-21] MEDS ORDERED: LIDOCAINE HCL 2% LOCAL INJ 5 ML SDV VIAL INJ ONE (12:14)
[2022-01-21] MEDS ORDERED: DEXAMETHASONE SOD PHOS INJ 4 MG/ML SDV ONE (12:14)
[2022-01-21] MEDS ORDERED: EPHEDRINE SULFATE INJ 50 MG/ML VIAL ONE (12:14)
[2022-01-21] MEDS ORDERED: SEVOFLURANE INHAL SOLN 250 ML PEN BTL ONE (12:14)
[2022-01-21] MEDS ORDERED: NEOSTIGMINE 1 MG/ML 10ML VIAL ONE (12:14)
[2022-01-21] MEDS ORDERED: POVIDONE IODINE 0.05% 0.05 % ML PO ONE (12:14)
[2022-01-21] MEDS ORDERED: FENTANYL CITRATE/PF 100MCG/2 ML INJ ONE (12:42)
[2022-01-21] MEDS ORDERED: MIDAZOLAM HCL 2 MG/2 ML VIAL ONE (12:42)
[2022-01-21 20:53] VITALS: BP 129/68
[2022-01-22] VITALS (8 sets, daily range): BP systolic 119–173; BP diastolic 67–120
[2022-01-22 05:32] LABS: BASOPHILS % 0.3 % (0.0-1.0); HEMATOCRIT 29.3 % (34.2-44.1); HEMOGLOBIN 8.9 g/dL (12.0-16.0); LYMPHOCYTES # (AUTO) 0.5 (1.0-3.2); MEAN CORPUSCULAR HEMOGLOBIN 29.7 pg (28-32); MEAN CORPUSCULAR HGB CONC 30.4 g/dL (31-35); MEAN CORPUSCULAR VOLUME 97.7 fL (81-99); MONOCYTES # (AUTO) 0.6 (0.2-0.8); MONOCYTES % 7.7 % (4.4-11.3); NEUTROPHILS # (AUTO) 6.3 (2.1-6.9); NEUTROPHILS % 84.5 % (38.7-80.0); PLATELET COUNT 162 x10e3/uL (140-360); RED CELL DISTRIBUTION WIDTH 14.2 % (11.7-14.4)
[2022-01-22 05:50] LABS: ANION GAP 17.3 mmol/L (8-16); CALCIUM 8.3 mg/dL (8.4-10.2); CREATININE, SERUM 0.76 mg/dL (0.57-1.11); POTASSIUM 4.3 mmol/L (3.5-5.1)
[2022-01-22] MEDS: Morphine 4mg INJECTION 4 MG/ML INJ IV PRN ×2 (05:53→13:44)
[2022-01-22] MEDS: BRIMONIDINE TARTRATE (OPTH) 5 ML LIQD OP SCH ×2 (08:49→16:32)
[2022-01-22] MEDS: CEFTRIAXONE 2 GM in SODIUM CHLORIDE 0.9% 100 ML IV SCH (08:49)
[2022-01-22] MEDS: DORZOLAMIDE/TIMOLOL (OPTH SOL) 10 ML DRPETTE OP SCH ×2 (08:49→21:51)
[2022-01-22] MEDS: FUROSEMIDE 20 MG TAB PO SCH (08:50)
[2022-01-22] MEDS: DILTIAZEM HCL ER 120 MG CAP PO SCH (08:50)
[2022-01-22] MEDS: FAMOTIDINE 20 MG TAB PO SCH ×2 (08:50→16:31)
[2022-01-22] MEDS: METOPROLOL SUCCINATE 25 MG TAB XL PO SCH ×2 (08:51→16:31)
[2022-01-22] MEDS: LISINOPRIL 20 MG TAB PO SCH ×2 (08:51→16:31)
[2022-01-22] MEDS: ATORVASTATIN 10 MG TAB PO SCH (08:52)
[2022-01-22] MEDS: LEVOTHYROXINE SODIUM 75 MCG TAB PO SCH (08:52)
[2022-01-22] MEDS: INSULIN REGULAR, HUMAN 100 UNIT/1 ML SQ SCH ×4 (09:25→21:57)
[2022-01-22] MEDS: ONDANSETRON HCL INJ 2MG/ML 2ML 2 MG/ML VIAL IV PRN (11:37)
[2022-01-22] MEDS: SODIUM CHLORIDE 0.9% 1000ML 1,000 ML IV SCH (11:39)
[2022-01-22] MEDS ORDERED: PROMETHAZINE 12.5MG/ NACL 0.9% 12.5 MG/50 ML BAG IV PRN (14:30)
[2022-01-22] MEDS: DOCUSATE SODIUM 100 MG CAP PO SCH (16:31)
[2022-01-22] MEDS ORDERED: MAGNESIUM HYDROXIDE 30 ML UDC PO ONE (17:00)
[2022-01-23] VITALS (9 sets, daily range): BP systolic 124–173; BP diastolic 77–120
[2022-01-23] MEDS: ONDANSETRON HCL INJ 2MG/ML 2ML 2 MG/ML VIAL IV PRN (01:30)
[2022-01-23 05:37] LABS: BASOPHILS # (AUTO) 0.1 (0.0-0.1); BASOPHILS % 0.3 % (0.0-1.0); EOSINOPHILS % 0.1 % (0.0-6.0); HEMATOCRIT 30.3 % (34.2-44.1); HEMOGLOBIN 9.6 g/dL (12.0-16.0); LYMPHOCYTES # (AUTO) 1.1 (1.0-3.2); LYMPHOCYTES % 7.6 % (18.0-39.1); MEAN CORPUSCULAR HEMOGLOBIN 29.9 pg (28-32); MEAN CORPUSCULAR HGB CONC 31.7 g/dL (31-35); MEAN CORPUSCULAR VOLUME 94.4 fL (81-99); MONOCYTES # (AUTO) 1.6 (0.2-0.8); MONOCYTES % 11.3 % (4.4-11.3); NEUTROPHILS # (AUTO) 11.5 (2.1-6.9); NEUTROPHILS % 79.6 % (38.7-80.0); PLATELET COUNT 233 x10e3/uL (140-360); RED BLOOD COUNT 3.21 x10e6/uL (3.6-5.1); RED CELL DISTRIBUTION WIDTH 14.7 % (11.7-14.4)
[2022-01-23] MEDS: SODIUM CHLORIDE 0.9% 1000ML 1,000 ML IV SCH (06:07)
[2022-01-23] MEDS: LEVOTHYROXINE SODIUM 75 MCG TAB PO SCH (06:08)
[2022-01-23] MEDS: INSULIN REGULAR, HUMAN 100 UNIT/1 ML SQ SCH ×4 (07:30→22:16)
[2022-01-23] MEDS: BRIMONIDINE TARTRATE (OPTH) 5 ML LIQD OP SCH ×2 (09:17→17:25)
[2022-01-23] MEDS: CEFTRIAXONE 2 GM in SODIUM CHLORIDE 0.9% 100 ML IV SCH (09:17)
[2022-01-23] MEDS: DORZOLAMIDE/TIMOLOL (OPTH SOL) 10 ML DRPETTE OP SCH ×2 (09:17→22:16)
[2022-01-23] MEDS: METOPROLOL SUCCINATE 25 MG TAB XL PO SCH ×2 (09:18→17:25)
[2022-01-23] MEDS: DILTIAZEM HCL ER 120 MG CAP PO SCH (09:19)
[2022-01-23] MEDS: DOCUSATE SODIUM 100 MG CAP PO SCH ×2 (09:19→17:25)
[2022-01-23] MEDS: FUROSEMIDE 20 MG TAB PO SCH (09:19)
[2022-01-23] MEDS: FAMOTIDINE 20 MG TAB PO SCH (09:19)
[2022-01-23] MEDS: LISINOPRIL 20 MG TAB PO SCH ×2 (09:20→17:25)
[2022-01-23] MEDS: ATORVASTATIN 10 MG TAB PO SCH (09:20)
[2022-01-23] MEDS ORDERED: BISACODYL 10 MG SUPP PR ONE (11:15)
[2022-01-23] MEDS: SODIUM CHLORIDE 0.9% 250ML IRRIG IR SCH (22:43)
[2022-01-24] VITALS (8 sets, daily range): BP systolic 124–162; BP diastolic 65–97
[2022-01-24] MEDS: SODIUM CHLORIDE 0.9% 250ML IRRIG IR SCH ×3 (02:40→10:00)
[2022-01-24] MEDS: SODIUM CHLORIDE 0.9% 1000ML 1,000 ML IV SCH (04:00)
[2022-01-24 05:23] LABS: BASOPHILS # (AUTO) 0.1 (0.0-0.1); BASOPHILS % 0.6 % (0.0-1.0); EOSINOPHILS # (AUTO) 0.2 (0.0-0.4); HEMATOCRIT 30.2 % (34.2-44.1); HEMOGLOBIN 9.4 g/dL (12.0-16.0); LYMPHOCYTES # (AUTO) 1.6 (1.0-3.2); LYMPHOCYTES % 16.9 % (18.0-39.1); MEAN CORPUSCULAR HGB CONC 31.1 g/dL (31-35); MEAN CORPUSCULAR VOLUME 96.5 fL (81-99); MONOCYTES # (AUTO) 1.2 (0.2-0.8); NEUTROPHILS # (AUTO) 6.6 (2.1-6.9); PLATELET COUNT 223 x10e3/uL (140-360); RED BLOOD COUNT 3.13 x10e6/uL (3.6-5.1); RED CELL DISTRIBUTION WIDTH 14.7 % (11.7-14.4)
[2022-01-24 05:44] LABS: ANION GAP 16.1 mmol/L (8-16); CALCIUM 8.5 mg/dL (8.4-10.2); CREATININE, SERUM 0.72 mg/dL (0.57-1.11); POTASSIUM 5.1 mmol/L (3.5-5.1)
[2022-01-24] MEDS: LEVOTHYROXINE SODIUM 75 MCG TAB PO SCH (06:00)
[2022-01-24] MEDS: INSULIN REGULAR, HUMAN 100 UNIT/1 ML SQ SCH ×4 (07:30→21:00)
[2022-01-24] MEDS: HYDRALAZINE HCL 20 MG/ML VIAL IV PRN ×2 (08:31→17:53)
[2022-01-24] MEDS: CEFTRIAXONE 2 GM in SODIUM CHLORIDE 0.9% 100 ML IV SCH (09:00)
[2022-01-24] MEDS: DORZOLAMIDE/TIMOLOL (OPTH SOL) 10 ML DRPETTE OP SCH ×2 (09:00→21:00)
[2022-01-24] MEDS: LISINOPRIL 20 MG TAB PO SCH ×2 (09:00→17:00)
[2022-01-24] MEDS: DOCUSATE SODIUM 100 MG CAP PO SCH ×2 (09:00→17:00)
[2022-01-24] MEDS: ATORVASTATIN 10 MG TAB PO SCH (09:00)
[2022-01-24] MEDS: FUROSEMIDE 20 MG TAB PO SCH (09:00)
[2022-01-24] MEDS: BRIMONIDINE TARTRATE (OPTH) 5 ML LIQD OP SCH ×2 (09:00→17:00)
[2022-01-24] MEDS: METOPROLOL TARTRATE INJ 1 MG/ML VIAL IV PRN ×2 (11:00→20:21)
[2022-01-24] MEDS: HYDROCODONE/APAP 5MG-325MG TAB PO PRN (11:10)
[2022-01-24] MEDS ORDERED: DILTIAZEM HCL 5 MG/ML 5 ML VIAL IV STA (21:21)
[2022-01-24] MEDS ORDERED: DILTIAZEM HCL ER 120 MG CAP PO SCH (22:00)
[2022-01-25] VITALS (8 sets, daily range): BP systolic 126–167; BP diastolic 71–94
[2022-01-25] MEDS: SODIUM CHLORIDE 0.9% 1000ML 1,000 ML IV SCH ×2 (04:41→21:06)
[2022-01-25] MEDS: LEVOTHYROXINE SODIUM 75 MCG TAB PO SCH (04:41)
[2022-01-25] MEDS: CEFTRIAXONE 2 GM in SODIUM CHLORIDE 0.9% 100 ML IV SCH (09:02)
[2022-01-25] MEDS: DOCUSATE SODIUM 100 MG CAP PO SCH ×2 (09:03→17:29)
[2022-01-25] MEDS: BRIMONIDINE TARTRATE (OPTH) 5 ML LIQD OP SCH ×2 (09:03→17:29)
[2022-01-25] MEDS: DORZOLAMIDE/TIMOLOL (OPTH SOL) 10 ML DRPETTE OP SCH ×2 (09:03→21:06)
[2022-01-25] MEDS: ATORVASTATIN 10 MG TAB PO SCH (09:04)
[2022-01-25] MEDS: FUROSEMIDE 20 MG TAB PO SCH (09:04)
[2022-01-25] MEDS: HYDROCODONE/APAP 5MG-325MG TAB PO PRN ×2 (09:05→14:20)
[2022-01-25] MEDS: LISINOPRIL 20 MG TAB PO SCH ×2 (09:05→17:30)
[2022-01-25] MEDS: METOPROLOL TARTRATE 50 MG TAB PO SCH ×2 (09:10→17:29)
[2022-01-25] MEDS: ENOXAPARIN SODIUM INJ 100 MG/ML SYR SC SCH ×2 (09:10→21:06)
[2022-01-25] MEDS: INSULIN REGULAR, HUMAN 100 UNIT/1 ML SQ SCH ×4 (09:17→21:00)
[2022-01-25] MEDS: ACETAMINOPHEN 325 MG TAB PO PRN (21:22)
[2022-01-26] VITALS (9 sets, daily range): BP systolic 112–158; BP diastolic 78–99
[2022-01-26] MEDS: LEVOTHYROXINE SODIUM 75 MCG TAB PO SCH (06:05)
[2022-01-26] MEDS: CEFTRIAXONE 2 GM in SODIUM CHLORIDE 0.9% 100 ML IV SCH (08:24)
[2022-01-26] MEDS: DOCUSATE SODIUM 100 MG CAP PO SCH ×2 (08:24→16:10)
[2022-01-26] MEDS: DORZOLAMIDE/TIMOLOL (OPTH SOL) 10 ML DRPETTE OP SCH ×2 (08:24→21:54)
[2022-01-26] MEDS: BRIMONIDINE TARTRATE (OPTH) 5 ML LIQD OP SCH ×2 (08:25→16:11)
[2022-01-26] MEDS: FUROSEMIDE 20 MG TAB PO SCH (08:25)
[2022-01-26] MEDS: METOPROLOL TARTRATE 50 MG TAB PO SCH ×3 (08:26→21:53)
[2022-01-26] MEDS: ACETAMINOPHEN 325 MG TAB PO PRN (08:26)
[2022-01-26] MEDS: ATORVASTATIN 10 MG TAB PO SCH (08:26)
[2022-01-26] MEDS: LISINOPRIL 20 MG TAB PO SCH ×2 (08:27→16:10)
[2022-01-26] MEDS: ENOXAPARIN SODIUM INJ 100 MG/ML SYR SC SCH ×2 (08:27→21:54)
[2022-01-26] MEDS: INSULIN REGULAR, HUMAN 100 UNIT/1 ML SQ SCH ×4 (08:47→21:58)
[2022-01-26] MEDS: HYDROCODONE/APAP 5MG-325MG TAB PO PRN ×2 (08:54→22:06)
[2022-01-26] MEDS ORDERED: Morphine 4mg INJECTION 4 MG/ML INJ IV PRN (11:30)
[2022-01-26] MEDS ORDERED: ONDANSETRON HCL 4 MG ORAL DISINTEGRATING TAB PO PRN (11:30)
[2022-01-26] MEDS ORDERED: BISACODYL 5 MG TAB EC PO ONE ×2 (12:15→16:30)
[2022-01-26] MEDS: PANTOPRAZOLE SOD 40 MG TABEC PO SCH (16:09)
[2022-01-27] VITALS (7 sets, daily range): BP systolic 131–148; BP diastolic 77–90
[2022-01-27 05:22] LABS: BASOPHILS # (AUTO) 0.1 (0.0-0.1); BASOPHILS % 0.6 % (0.0-1.0); EOSINOPHILS # (AUTO) 0.3 (0.0-0.4); EOSINOPHILS % 3.3 % (0.0-6.0); HEMATOCRIT 31.1 % (34.2-44.1); HEMOGLOBIN 9.7 g/dL (12.0-16.0); LYMPHOCYTES # (AUTO) 1.5 (1.0-3.2); LYMPHOCYTES % 18.4 % (18.0-39.1); MEAN CORPUSCULAR HEMOGLOBIN 29.7 pg (28-32); MEAN CORPUSCULAR HGB CONC 31.2 g/dL (31-35); MEAN CORPUSCULAR VOLUME 95.1 fL (81-99); MONOCYTES % 12.2 % (4.4-11.3); NEUTROPHILS # (AUTO) 5.2 (2.1-6.9); NEUTROPHILS % 64.9 % (38.7-80.0); PLATELET COUNT 259 x10e3/uL (140-360); RED BLOOD COUNT 3.27 x10e6/uL (3.6-5.1); RED CELL DISTRIBUTION WIDTH 14.3 % (11.7-14.4)
[2022-01-27 05:34] LABS: ANION GAP 13.4 mmol/L (8-16); CALCIUM 8.6 mg/dL (8.4-10.2); CREATININE, SERUM 0.68 mg/dL (0.57-1.11); POTASSIUM 3.4 mmol/L (3.5-5.1)
[2022-01-27] MEDS: LEVOTHYROXINE SODIUM 75 MCG TAB PO SCH (05:53)
[2022-01-27] MEDS: HYDROCODONE/APAP 5MG-325MG TAB PO PRN (09:23)
[2022-01-27] MEDS: INSULIN REGULAR, HUMAN 100 UNIT/1 ML SQ SCH ×4 (09:24→21:45)
[2022-01-27] MEDS: PANTOPRAZOLE SOD 40 MG TABEC PO SCH ×2 (09:42→15:57)
[2022-01-27] MEDS: FUROSEMIDE 20 MG TAB PO SCH (09:42)
[2022-01-27] MEDS: ATORVASTATIN 10 MG TAB PO SCH (09:42)
[2022-01-27] MEDS: DORZOLAMIDE/TIMOLOL (OPTH SOL) 10 ML DRPETTE OP SCH ×2 (09:42→21:39)
[2022-01-27] MEDS: BRIMONIDINE TARTRATE (OPTH) 5 ML LIQD OP SCH ×2 (09:42→18:07)
[2022-01-27] MEDS: DOCUSATE SODIUM 100 MG CAP PO SCH ×2 (09:42→18:46)
[2022-01-27] MEDS: CEFTRIAXONE 2 GM in SODIUM CHLORIDE 0.9% 100 ML IV SCH (09:42)
[2022-01-27] MEDS: METOPROLOL TARTRATE 50 MG TAB PO SCH ×3 (09:43→21:38)
[2022-01-27] MEDS: LISINOPRIL 20 MG TAB PO SCH ×2 (09:43→18:47)
[2022-01-27] MEDS ORDERED: POTASSIUM CHLORIDE 10MEQ EA PO ONE (10:30)
[2022-01-27] MEDS: DILTIAZEM HCL ER 120 MG CAP PO SCH (11:45)
[2022-01-27] MEDS: APIXABAN 5 MG TABLET PO SCH (18:46)
[2022-01-28] VITALS: BP 157/97
[2022-01-28 04:00] VITALS: BP 111/77
[2022-01-28] MEDS: LEVOTHYROXINE SODIUM 75 MCG TAB PO SCH (05:48)
[2022-01-28 07:30] VITALS: BP 145/78
[2022-01-28] MEDS: INSULIN REGULAR, HUMAN 100 UNIT/1 ML SQ SCH (07:30)
[2022-01-28] MEDS: PANTOPRAZOLE SOD 40 MG TABEC PO SCH (07:30)
[2022-01-28] MEDS: HYDROCODONE/APAP 5MG-325MG TAB PO PRN ×2 (08:50→12:00)
[2022-01-28] MEDS: DILTIAZEM HCL ER 120 MG CAP PO SCH (09:00)
[2022-01-28] MEDS: METOPROLOL TARTRATE 50 MG TAB PO SCH (09:00)
[2022-01-28] MEDS: APIXABAN 5 MG TABLET PO SCH (09:00)
[2022-01-28] MEDS: LISINOPRIL 20 MG TAB PO SCH (09:00)
[2022-01-28] MEDS: DORZOLAMIDE/TIMOLOL (OPTH SOL) 10 ML DRPETTE OP SCH (09:00)
[2022-01-28] MEDS: DOCUSATE SODIUM 100 MG CAP PO SCH (09:00)
[2022-01-28] MEDS: BRIMONIDINE TARTRATE (OPTH) 5 ML LIQD OP SCH (09:00)
[2022-01-28] MEDS: ATORVASTATIN 10 MG TAB PO SCH (09:00)
[2022-01-28] MEDS: FUROSEMIDE 20 MG TAB PO SCH (09:00)
[2022-01-28] MEDS ORDERED: METOPROLOL TART50 MG PO ×2 (09:27→11:16)
[2022-01-28] MEDS ORDERED: LISINOPRIL20 MG PO ×2 (09:27→11:16)
[2022-01-28] MEDS: CEFTRIAXONE 2 GM in SODIUM CHLORIDE 0.9% 100 ML IV SCH (09:45)
[2022-01-28 09:50] VITALS: BP 145/78
[2022-01-28] MEDS ORDERED: DILTIAZEM 24HR120 M1 PO (11:15)
[2022-01-28] MEDS ORDERED: HYDROCODON-ACE1 EA11 PO (11:51)
== END 2022-01-28 12:00 | disposition home or self-care (01) | DRG 571 ==
LOC: ER 18:01 → ERHOLD 19:35 → MED/SURG 01-19 01:22 → OBSVTOIN 01-19 12:54
PROVIDERS: ADMIT Internal Medicine; ATTEND Internal Medicine
PROC: 0JCN0ZZ Extirpation of Matter from Right Lower Leg Subcutaneous Tissue and Fascia, Open Approach (ICD-10-PCS; 2022-01-21)
PROC: 0JQN0ZZ Repair Right Lower Leg Subcutaneous Tissue and Fascia, Open Approach (ICD-10-PCS; 2022-01-21)
PROC: 0JBN0ZZ Excision of Right Lower Leg Subcutaneous Tissue and Fascia, Open Approach (ICD-10-PCS; principal; 2022-01-21 14:41)
DX: S80.11XA Contusion of right lower leg, initial encounter (principal); C64.9 Malignant neoplasm of unspecified kidney, except renal pelvis; K91.89 Other postprocedural complications and disorders of digestive system; K56.7 Ileus, unspecified; W54.1XXA Struck by dog, initial encounter; I48.0 Paroxysmal atrial fibrillation; Z79.01 Long term (current) use of anticoagulants; I10 Essential (primary) hypertension; R14.0 Abdominal distension (gaseous); E78.00 Pure hypercholesterolemia, unspecified; E66.01 Morbid (severe) obesity due to excess calories; Z68.37 Body mass index [BMI] 37.0-37.9, adult; E78.5 Hyperlipidemia, unspecified; E11.69 Type 2 diabetes mellitus with other specified complication; S81.811A Laceration without foreign body, right lower leg, initial encounter; I89.0 Lymphedema, not elsewhere classified; E03.9 Hypothyroidism, unspecified; K59.00 Constipation, unspecified; R11.2 Nausea with vomiting, unspecified; T36.8X5A Adverse effect of other systemic antibiotics, initial encounter
CPT/HCPCS: 0223U; 36415; 74018; 80048; 80053; 82948; 85025; 85610; 85730; 93005; 93306; 96361; 96372; 99251; 99285; G0378; J0360; J0696; J1100; J1650; J1817; J2001; J2250; J2270; J2405; J2550; J2710; J3010; J7030; J7050

== ENCOUNTER 2024-03-02 16:12 | Inpatient (IN) | payer MEDICARE ==
[~2024-03-02] VITALS: Ht 165.1 cm; Wt 107.5 kg
[~2024-03-02 16:12] MED LIST changes: +ATORVASTATIN CA10 MG PO; +BRIMONIDINE TART5 ML OP; +CALCIUM ACETAT667 MG PO; +DILTIAZEM 24HR120 M1 PO; +DORZOLAMIDE-TIM10 ML OP; +ELIQUIS5 MG PO; +HYDROCODON-ACE1 EA11 PO; +LATANOPROST2.5 ML OP; +LISINOPRIL5 MG PO; +METOPROLOL SUCC50 MG PO; +METOPROLOL TART50 MG PO; +VITAMIN D310 MCG PO
[2024-03-02] MEDS: SODIUM CHLORIDE 0.9% 500ML 500 ML IV ONE (17:33)
[2024-03-02 17:37] LABS: BASOPHILS % 0.2 % (0.0-1.0); EOSINOPHILS # (AUTO) 0.1 (0.0-0.4); EOSINOPHILS % 0.7 % (0.0-6.0); HEMATOCRIT 35.9 % (34.2-44.1); HEMOGLOBIN 10.9 g/dL (12.0-16.0); LYMPHOCYTES # (AUTO) 0.6 (1.0-3.2); LYMPHOCYTES % 5.6 % (18.0-39.1); MEAN CORPUSCULAR HEMOGLOBIN 29.9 pg (28-32); MEAN CORPUSCULAR HGB CONC 30.4 g/dL (31-35); MEAN CORPUSCULAR VOLUME 98.4 fL (81-99); MONOCYTES # (AUTO) 0.5 (0.2-0.8); MONOCYTES % 4.1 % (4.4-11.3); NEUTROPHILS # (AUTO) 10.2 (2.1-6.9); NEUTROPHILS % 88.7 % (38.7-80.0); PLATELET COUNT 160 x10e3/uL (140-360); RED BLOOD COUNT 3.65 x10e6/uL (3.6-5.1); RED CELL DISTRIBUTION WIDTH 15.2 % (11.7-14.4); WHITE BLOOD COUNT 11.47 x10e3/uL (4.8-10.8)
[2024-03-02 17:41] LABS: CLARITY,URINE CLOUDY (CLEAR); COLOR,URINE YELLOW (YELLOW)
[2024-03-02 17:42] LABS: BILIRUBIN,URINE NEGATIVE (NEGATIVE); GLUCOSE, URINE NEGATIVE (NEGATIVE); KETONES,URINE NEGATIVE (NEGATIVE); LEUKOCYTE ESTERASE ,URINE LARGE (NEGATIVE); NITRITE,URINE NEGATIVE (NEGATIVE); PH,URINE 8 (5 - 7); PROTEIN,URINE DIPSTICK 1+ (NEGATIVE); URINE UROBILINOGEN 0.2 mg/dL (0.2 - 1)
[2024-03-02 17:46] LABS: WBC,URINE (MAN) >50 /HPF (0-5)
[2024-03-02 17:46] LABS: INR 1.31; PROTHROMBIN TIME 16.9 seconds (11.9-14.5)
[2024-03-02 17:47] LABS: BACTERIA,URINE MANY /HPF; EPITHELIAL CELLS,URINE RARE /LPF; RBC,URINE 0-5 /HPF (0-5)
[2024-03-02 17:47] LABS: PARTIAL THROMBOPLASTIN TIME 36.4 seconds (23.8-35.5)
[2024-03-02 17:56] LABS: ALBUMIN/GLOBULIN RATIO 0.8 (0.8-2.0); ANION GAP 15.9 mmol/L (8-16); BILIRUBIN,TOTAL 0.7 mg/dL (0.2-1.2); CALCIUM 9.3 mg/dL (8.4-10.2); CREATININE, SERUM 1.31 mg/dL (0.57-1.11); MAGNESIUM 2.1 MG/DL (1.3-2.1); POTASSIUM 3.9 mmol/L (3.5-5.1)
[2024-03-02 18:02] LABS: TROPONIN I 0.051 ng/mL (0-0.300)
[2024-03-02] MEDS: Vancomycin IV 1 GM in SODIUM CHLORIDE 0.9% 250ML 250 ML IV ONE (18:13)
[2024-03-02] MEDS: SODIUM CHLORIDE 0.9% 1000ML 1,000 ML IV ONE (18:48)
[2024-03-02] MEDS: DILTIAZEM HCL ER 120 MG CAP PO ONE (19:35)
[2024-03-03 05:19] LABS: BASOPHILS % 0.3 % (0.0-1.0); EOSINOPHILS # (AUTO) 0.2 (0.0-0.4); EOSINOPHILS % 1.7 % (0.0-6.0); HEMOGLOBIN 10.7 g/dL (12.0-16.0); LYMPHOCYTES # (AUTO) 0.9 (1.0-3.2); LYMPHOCYTES % 8.6 % (18.0-39.1); MEAN CORPUSCULAR HEMOGLOBIN 29.7 pg (28-32); MEAN CORPUSCULAR HGB CONC 30.6 g/dL (31-35); MEAN CORPUSCULAR VOLUME 97.2 fL (81-99); MONOCYTES # (AUTO) 0.6 (0.2-0.8); MONOCYTES % 5.4 % (4.4-11.3); NEUTROPHILS # (AUTO) 8.8 (2.1-6.9); NEUTROPHILS % 83.5 % (38.7-80.0); PLATELET COUNT 157 x10e3/uL (140-360); RED CELL DISTRIBUTION WIDTH 15.1 % (11.7-14.4); WHITE BLOOD COUNT 10.54 x10e3/uL (4.8-10.8)
[2024-03-03 05:36] LABS: ALBUMIN 2.9 g/dL (3.5-5.0); ALBUMIN/GLOBULIN RATIO 0.8 (0.8-2.0); ANION GAP 16.6 mmol/L (8-16); BILIRUBIN,TOTAL 0.6 mg/dL (0.2-1.2); CALCIUM 8.9 mg/dL (8.4-10.2); CREATININE, SERUM 1.03 mg/dL (0.57-1.11); POTASSIUM 3.6 mmol/L (3.5-5.1); TOTAL PROTEIN 6.7 g/dL (6.5-8.1)
[2024-03-03 06:18] VITALS: TEMP 99.8
[2024-03-03] MEDS ORDERED: ACETAMINOPHEN 325 MG TAB PO PRN (12:15)
[2024-03-03] MEDS ORDERED: DEXTROSE 50% SYRINGE 50 ML IV PRN (12:15)
[2024-03-03] MEDS: DILTIAZEM HCL ER 120 MG CAP PO SCH (13:30)
[2024-03-03] MEDS: METOPROLOL TARTRATE 50 MG TAB PO SCH (14:51)
[2024-03-03] MEDS: APIXABAN 5 MG TABLET PO SCH (14:53)
[2024-03-03] MEDS: FAMOTIDINE 20 MG TAB PO SCH (14:53)
[2024-03-03] MEDS: LISINOPRIL 20 MG TAB PO SCH (14:54)
[2024-03-03] MEDS: Morphine 4mg INJECTION 4 MG/ML INJ IV PRN (15:00)
[2024-03-03] MEDS: HYDROCODONE/APAP 5MG-325MG TAB PO PRN (15:01)
[2024-03-03] MEDS ORDERED: SODIUM CHLORIDE 0.9% 1000ML 1,000 ML ONE (15:45)
[2024-03-03] MEDS: INSULIN LISPRO 100 UNIT/1 ML 3ML VIAL SQ SCH (16:30)
[2024-03-03] MEDS: BRIMONIDINE TARTRATE (OPTH) 5 ML LIQD OP SCH (17:39)
[2024-03-03] MEDS: FUROSEMIDE 40 MG TAB PO SCH (18:12)
[2024-03-03] MEDS: Vancomycin IV 1 GM in SODIUM CHLORIDE 0.9% 250ML 250 ML IV SCH (19:43)
[2024-03-03 20:00] VITALS: PULSE 92; RESP 17
[2024-03-03] MEDS: LATANOPROST(OPTH) 2.5 ML BTL OP SCH (21:00)
[2024-03-03] MEDS: DORZOLAMIDE/TIMOLOL (OPTH SOL) 10 ML DRPETTE OP SCH (21:00)
[2024-03-03] MEDS: ATORVASTATIN 10 MG TAB PO SCH (21:35)
[2024-03-03 22:00] VITALS: BP 108/46; PULSE 89; RESP 19; TEMP 98.7; O2SAT 100
[2024-03-04] VITALS (7 sets, daily range): BP systolic 100–127; BP diastolic 57–80; PULSE 64–89; RESP 15–21; TEMP 97.9–98.8; O2SAT 94–100
[2024-03-04] MEDS ORDERED: HYDROCODON-ACE1 EAC9 PO (01:29)
[2024-03-04] MEDS ORDERED: MS CONTIN15 MG PO (01:29)
[2024-03-04] MEDS ORDERED: METHOCARBAMOL1000 MG PO (01:29)
[2024-03-04] MEDS: LEVOTHYROXINE SODIUM 75 MCG TAB PO SCH (05:14)
[2024-03-04] MEDS: CALCIUM ACETATE 667 MG GELCAP PO SCH (09:40)
[2024-03-04] MEDS: POTASSIUM CHLORIDE 10MEQ EA PO SCH (09:40)
[2024-03-04] MEDS: LISINOPRIL 20 MG TAB PO SCH (09:42)
[2024-03-04] MEDS: GLIPIZIDE 5 MG TAB PO SCH (09:43)
[2024-03-04] MEDS ORDERED: FUROSEMIDE INJ 10 MG/ML 4 ML VIAL IV SCH (10:30)
[2024-03-04] MEDS: FUROSEMIDE INJ 10 MG/ML 4 ML VIAL IV SCH (11:39)
[2024-03-04] MEDS: BRIMONIDINE TARTRATE 0.15% OPTH DRPS 10ML BTL OP SCH (11:39)
[2024-03-04] MEDS: HYDROMORPHONE 1MG/1ML INJ IV PRN (12:20)
[2024-03-04] MEDS: AMMONIUM LACTATE 12% LOTION 225GM BTL TOP SCH (12:57)
[2024-03-04] MEDS: HYDROCODONE/APAP 5MG-325MG TAB PO PRN (14:47)
[2024-03-04] MEDS: NYSTATIN 15 GM POWDER UD BTL TOP SCH (18:03)
[2024-03-05] VITALS (8 sets, daily range): BP systolic 123–141; BP diastolic 76–95; PULSE 85–95; RESP 16–18; TEMP 97.9–98.8; O2SAT 92–100
[2024-03-05] MEDS: ONDANSETRON HCL INJ 2MG/ML 2ML 2 MG/ML VIAL IV PRN (09:46)
[2024-03-05] MEDS: FLUCONAZOLE 100 MG TAB PO SCH (13:01)
[2024-03-05] MEDS: FUROSEMIDE INJ 10 MG/ML 4 ML VIAL IV SCH (17:45)
[2024-03-06] VITALS (7 sets, daily range): BP systolic 130–159; BP diastolic 80–96; PULSE 87–103; RESP 18–21; TEMP 98.1–99.4; O2SAT 95–100
[2024-03-06 05:48] LABS: BASOPHILS # (AUTO) 0.1 (0.0-0.1); BASOPHILS % 0.6 % (0.0-1.0); EOSINOPHILS # (AUTO) 0.3 (0.0-0.4); HEMATOCRIT 36.5 % (34.2-44.1); HEMOGLOBIN 10.9 g/dL (12.0-16.0); LYMPHOCYTES # (AUTO) 1.4 (1.0-3.2); MEAN CORPUSCULAR HEMOGLOBIN 29.5 pg (28-32); MEAN CORPUSCULAR HGB CONC 29.9 g/dL (31-35); MEAN CORPUSCULAR VOLUME 98.6 fL (81-99); MONOCYTES % 11.8 % (4.4-11.3); NEUTROPHILS # (AUTO) 5.4 (2.1-6.9); NEUTROPHILS % 65.5 % (38.7-80.0); PLATELET COUNT 203 x10e3/uL (140-360); RED CELL DISTRIBUTION WIDTH 14.5 % (11.7-14.4); WHITE BLOOD COUNT 8.22 x10e3/uL (4.8-10.8)
[2024-03-06 06:24] LABS: ALBUMIN/GLOBULIN RATIO 0.6 (0.8-2.0); ANION GAP 15.4 mmol/L (8-16); BILIRUBIN,TOTAL 0.4 mg/dL (0.2-1.2); CALCIUM 9.3 mg/dL (8.4-10.2); CREATININE, SERUM 0.92 mg/dL (0.57-1.11); TOTAL PROTEIN 7.8 g/dL (6.5-8.1)
[2024-03-06 06:25] LABS: POTASSIUM 3.4 mmol/L (3.5-5.1)
[2024-03-07] VITALS: BP 124/76; PULSE 92; RESP 18; TEMP 98.1; O2SAT 96
[2024-03-07 04:55] VITALS: BP 133/73; PULSE 108; RESP 20; TEMP 98.4; O2SAT 94
[2024-03-07 08:22] VITALS: BP 136/71; PULSE 97; RESP 20; TEMP 98.6; O2SAT 97
[2024-03-07] MEDS ORDERED: Ammonium Lactate 12% Lotion TOP (10:56)
[2024-03-07 11:04] VITALS: BP 136/71; PULSE 97; RESP 20; TEMP 98.6; O2SAT 97
[2024-03-07 12:00] VITALS: BP 132/95; PULSE 88; RESP 20; TEMP 98.8; O2SAT 97
== END 2024-03-07 13:17 | disposition hospice, home (50) | DRG 603 ==
LOC: ER 16:27 → ERHOLD 18:49 → MED/SURG 03-03 21:02
PROVIDERS: ADMIT Internal Medicine; ATTEND Internal Medicine
DX: L03.116 Cellulitis of left lower limb (principal); N39.0 Urinary tract infection, site not specified; C64.2 Malignant neoplasm of left kidney, except renal pelvis; Z16.21 Resistance to vancomycin; Z16.12 Extended spectrum beta lactamase (ESBL) resistance; I48.20 Chronic atrial fibrillation, unspecified; I11.0 Hypertensive heart disease with heart failure; I50.32 Chronic diastolic (congestive) heart failure; B95.2 Enterococcus as the cause of diseases classified elsewhere; I69.320 Aphasia following cerebral infarction; Z66 Do not resuscitate; E11.9 Type 2 diabetes mellitus without complications; B96.20 Unspecified Escherichia coli [E. coli] as the cause of diseases classified elsewhere; E03.9 Hypothyroidism, unspecified; E66.9 Obesity, unspecified; Z68.39 Body mass index [BMI] 39.0-39.9, adult; E78.00 Pure hypercholesterolemia, unspecified; I89.0 Lymphedema, not elsewhere classified; I83.12 Varicose veins of left lower extremity with inflammation; I83.11 Varicose veins of right lower extremity with inflammation; R53.81 Other malaise; R53.1 Weakness; N28.9 Disorder of kidney and ureter, unspecified; Z79.01 Long term (current) use of anticoagulants; Z79.84 Long term (current) use of oral hypoglycemic drugs; Z79.890 Hormone replacement therapy; Z74.01 Bed confinement status; Z96.0 Presence of urogenital implants; Z90.710 Acquired absence of both cervix and uterus; Z90.11 Acquired absence of right breast and nipple; Z85.3 Personal history of malignant neoplasm of breast; Z88.1 Allergy status to other antibiotic agents; Z91.048 Other nonmedicinal substance allergy status
CPT/HCPCS: 36415; 51700; 71045; 80053; 80202; 81001; 82948; 83735; 83880; 84484; 85025; 85610; 85730; 87040; 87086; 87186; 93005; 93306; 93971; 99252; 99283; 99285; J1171; J1940; J2270; J2405; J2543; J7030; J7040; J7050